=== PATIENT | male | born 1945 | race Caucasian/White ===

== ENCOUNTER → 2018-08-31 | Outpatient (CLI) | payer MEDICARE, OTHER, SELFPAY ==
--- NOTE | 2018-08-31 16:55 | CT_ITS ---
STUDY: CT MAXILLOFACIAL SINUSES REASON FOR EXAM: Male, 72 years old. Sinusitis, right-sided is worse. Chronic left-sided drainage. RADIATION DOSAGE (If Supplied By Facility): CTDIvol = ( 33.06 ) mGy, DLP = ( 759.47 ) mGycm TECHNIQUE: The patient was scanned in a multi detector CT scanner. High resolution axial imaging was performed without the administration of intravenous contrast material. Sagittal and coronal images were reconstructed. Individualized dose optimization techniques were used for this CT. COMPARISON: None. FINDINGS: FRONTAL SINUSES: Normal aeration, without mucosal inflammatory disease. ETHMOIDAL SINUSES: Right ethmoidectomy defect. Normal left ethmoid sinus. MAXILLARY SINUSES: Complete opacification of the right matter sinus with sclerotic normal thickening and contraction. 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 SPHENOIDAL SINUSES: Normal aeration, without mucosal inflammatory disease. Normal left ostiomeatal unit. 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 Partial right middle turbinectomy. Normal left middle turbinate. Postsurgical absence of the right inferior turbinate. Normal left inferior turbinate. Minimal right basal septal deviation. There is patency of the bilateral nasal airways. The visualized osseous structures are normal. The visualized bilateral orbital contents are normal. CT/Sinus/Facial Bone IMPRESSION: 1. Complete opacification of the right macros sinuses with sclerotic wall thickening and contraction from chronic sinusitis with probable granulation tissue. 2. 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 3. Right ethmoidectomy defect without mucosal thickening of the residual right ethmoid air cells. 4. Normal remaining paranasal sinuses. 5. Patent left ostiomeatal unit. 6. Minimal right nasal septal deviation. Electronically Signed: Quinton Rashid MD at 14:13 EDT , Service support ,
== END | disposition home or self-care (01) ==
PROVIDERS: Referring Provider Otolaryngology; Visit Provider Otolaryngology
DX: J32.9 Chronic sinusitis, unspecified (principal)
CPT/HCPCS: 70486

== ENCOUNTER → 2018-11-05 | Outpatient (CLI) | payer MEDICARE, OTHER, SELFPAY ==
[2018-11-05 14:29] LABS: PSA,Total - Annual Screen 0.61 ng/mL (0.00-4.00)
== END | disposition home or self-care (01) ==
LOC: PAVLAB 13:46
PROVIDERS: Referring Provider Urology; Visit Provider Urology
DX: Z12.5 Encounter for screening for malignant neoplasm of prostate (principal)
CPT/HCPCS: 36415; 84153; G0103

== ENCOUNTER 2021-05-28 12:16 | Outpatient (CLI) | payer MEDICARE, SELFPAY ==
[2021-05-28 12:40] LABS: EGFR FINGERSTICK > 60.0000 mL/min (>60)
--- NOTE | 2021-05-28 13:00 | MRI_ITS ---
EXAM: MR HEAD WITHOUT AND WITH INTRAVENOUS CONTRAST : 1945 CLINICAL INDICATION: DIPLOPIA x 2-4 weeks TECHNIQUE: Multiplanar and multisequence MR images of the brain were obtained without and with intravenous contrast. This report was created using [employer] [place] report generation technology. CONTRAST: IV 22ml Dotarem COMPARISON: None. FINDINGS: BRAIN AND EXTRA-AXIAL SPACES: Several small foci of increased T2 signal intensity within the cerebral white matter consistent with gliosis/chronic microvascular disease. No abnormal contrast enhancement. No intra- or extra-axial hemorrhage. No evidence of acute infarct. No intracranial mass or mass effect. There is preservation of the starkey/white matter interface. Posterior fossa structures are unremarkable. Ventricles are appropriate for age. No hydrocephalus. Basal cisterns are patent. SELLA: Unremarkable. Normal sella turcica, pituitary gland, infundibular stalk, optic chiasm and hypothalamus. AUDITORY SYSTEM: Unremarkable. The internal auditory canals are patent. BONES/JOINTS: Unremarkable. No discrete lytic or blastic abnormalities. SINUSES: Mucosal thickening noted within the paranasal sinuses. MASTOID AIR CELLS: Unremarkable as visualized. Clear. ORBITS: Unremarkable as visualized. Both globes, extraocular muscles, optic nerves and retrobulbar fat appear unremarkable. VASCULATURE: Unremarkable as visualized. Normal flow voids in the major intracranial circulation. MRI/Brain W/WO Contrast IMPRESSION: 1. No acute intracranial abnormality. 2. Mild senescent change. at 1422 Reported and signed by: Amador Rodriguez MD Electronically Signed: Amador Rodriguez MD at 14:20 EST ,
== END 2021-05-28 23:59 | disposition short-term general hospital (02) ==
PROVIDERS: PCP Family Medicine; Referring Provider Ophthalmology; Visit Provider Ophthalmology
DX: H53.2 Diplopia (principal)
CPT/HCPCS: 70553; A9575

== ENCOUNTER → 2022-04-13 | Outpatient (CLI) | payer MEDICARE, SELFPAY ==
--- NOTE | 2022-04-13 08:45 | EKG12_ITS ---
Test Reason : PRE-OP Blood Pressure : / mmHG Vent. Rate : 064 BPM Atrial Rate : 049 BPM P-R Int : 190 ms QRS Dur : 112 ms QT Int : 454 ms P-R-T Axes : 026 -24 034 degrees QTc Int : 468 ms Sinus bradycardia with occasional Premature ventricular complexes Otherwise normal ECG Confirmed by RADHA DIOR, BINDU ([id number]), news videotape editor MINERVA TERESA ([id number]) on 04/14/2022 8:32:38 AM Referred By: MARCELO Confirmed By:BINDU GARCIA MD
[2022-04-13 10:50] LABS: Hematocrit 44.1 % (40-54); Hemoglobin 15.1 g/dL (13.0-16.5); Mean Corp Hgb Conc 34.2 g/dL (32-36); Mean Corpuscular Hgb 30.1 pg (27.0-32.0); Mean Corpuscular Volume 87.8 fL (80-94); Platelet Count 230 K/mm3 (150-450); RBC Distribution Width CV 13.6 % (11.6-14.6); RBC Distribution Width SD 43.5 fl (35.1-43.9); Red Blood Count 5.02 M/mm3 (4.6-6.2); White Blood Count 9.4 K/mm3 (4.4-11.0)
[2022-04-13 11:33] LABS: Anion Gap 8 (5-15); BUN 44 mg/dL (7-18); Calcium,Total 9.2 mg/dL (8.5-10.1); Chloride 105 mmol/L (98-107); Creatinine, Serum 1.69 mg/dL (0.70-1.30); EST Glomerular Filtration Rate 42 mL/min (>60); Est Glom Filt Rate - Afr Amer 51 mL/min (>60); Glucose 90 mg/dL (74-106); Potassium 3.9 mmol/L (3.5-5.1); Sodium Level 138 mmol/L (136-145)
== END | disposition home or self-care (01) ==
LOC: PSN 08:26
PROVIDERS: PCP Family Medicine; Visit Provider Otolaryngology
DX: Z01.818 Encounter for other preprocedural examination (principal); R00.1 Bradycardia, unspecified; I49.3 Ventricular premature depolarization
CPT/HCPCS: 36415; 80048; 85027; 93005

== ENCOUNTER → 2022-04-19 | Outpatient (CLI) | payer MEDICARE, SELFPAY ==
--- NOTE | 2022-04-19 14:50 | ETH_PTH ---
PATIENT: BEV TOUSSAINT Jr. LOC: [facility] U#:[id number] AGE/SX: 76/M ROOM: RE04/19/[address]: Dr. Mark Isabel MD : 1945 BED: DIS: 04/19/2022 SPEC #: [id number] RECD: 04/20/22 14:55 STATUS: AMAURY TAVERAS #: [id number] KENIA: 04/19/22 14:[address]: Mark Isabel DEPT: SURGICAL PATHOLOGY RECD BY: Clayton Hernandez ENTERED: 04/21/22 10:03 SP TYPE: ETH TISS OTHR DR: Dr. Radu Sequeira MD Tissues: A - Ethmoid sinus, NOS B - Ethmoid sinus, NOS Procedures: Decalcification bone/plaque Surgery Specimen Level III HEADER OPERATION: Functional endoscopic sinus surgery PRE-OP DIAGNOSIS: Chronic pansinusitis TISSUE SUBMITTED: A ? Contents right sinus, B ? Contents left sinus MICROSCOPIC DIAGNOSIS A. Right sinus contents, curettings: Polypoid fragment of respiratory mucosa with chronic inflammation. B. Left sinus contents, curettings: Consistent with chronic sinusitis. Fragments of bone with no pathologic change. AM:ashish 04/26/2022 MICROSCOPIC DESCRIPTION Slides are reviewed. GROSS DESCRIPTION A - Received in fixative is one container labeled with the patient's name and designated right sinus contents. The specimen consists of a fragment of tidwell soft tissue measuring 0.6 x 0.2 x 0.1 cm. The entire specimen is submitted in one cassette. B - A - Received in fixative is one container labeled with the patient's name and designated left sinus contents. The specimen consists of multiple irregular fragments of tidwell soft tissue mixed with fragments of bone including turbinate that in aggregate measure 3 x 2.5 x 0.3 cm. The entire specimen is submitted in two cassettes after decalcification. / SJ:ashish 04/21/2022 TC:3 CPT: 95564 x2, [id number]
== END | disposition home or self-care (01) ==
LOC: LABSPEC 04-21 10:06
PROVIDERS: PCP Family Medicine; Referring Provider Otolaryngology; Visit Provider Otolaryngology
DX: J32.9 Chronic sinusitis, unspecified (principal)
CPT/HCPCS: 88304; 88305; 88311

== ENCOUNTER → 2023-07-04 | Outpatient (CLI) | payer MEDICARE, SELFPAY ==
--- NOTE | 2023-07-04 14:50 | RAD_ITS ---
INDICATION: inflammatory polyarthropathy EXAMINATION/TECHNIQUE: X-RAY - XR Pelvis 1 or 2 Views COMPARISON: None. FINDINGS: PELVIC BONES: No displaced fracture, destructive or sclerotic lesions. Note that overlapping bowel shadows may however obscure fine detail. Sacroiliac joints are unremarkable. No widening of the pubic symphysis. HIPS: The articular structures are unremarkable. No displaced fracture seen in this frontal view. SOFT TISSUES: No soft tissue swelling or gas. Diffuse vascular calcifications are present in the femoral vessels greater on the RIGHT than LEFT. RAD/Pelvis 1 or 2 Views IMPRESSION: No evidence of displaced pelvic or hip fracture. Electronically Signed: Julio Cabrera MD at 18:08 EDT ,
[2023-07-04 18:18] LABS: Erythrocyte Sedimentation Rate 75 mm/hr (0-20)
[2023-07-04 18:20] LABS: Absolute Lymphocyte Count 1.37 X10^3/uL (0.83-4.51); Absolute Neutrophil Count 5.9 X10^3/uL (2.0-7.7); Basophil# 0.08 X10^3/uL; Basophil% 0.9 % (0-1); Eosinophil# 0.27 X10^3/uL; Eosinophils% 3.1 % (0-5); Hematocrit 38.7 % (40-54); Hemoglobin 12.3 g/dL (13.0-16.5); Lymphocyte # 1.37 X10^3/ul (0.83-4.51); Lymphocyte % 15.6 % (19-41); Mean Corp Hgb Conc 31.8 g/dL (32-36); Mean Corpuscular Hgb 27.2 pg (27.0-32.0); Mean Corpuscular Volume 85.4 fL (80-94); Mean Platelet Vol. 11.9 fl (6.2-12.0); Monocyte# 0.99 X10^3/uL; Monocyte% 11.2 % (0-10); NRBC Flagged by Analyzer 0 % (0-5); Neutrophil # 5.89 X10^3/uL (2.7-7.7); Neutrophil % 66.8 % (47-70); Platelet Count 301 K/mm3 (150-450); RBC Distribution Width CV 13.4 % (11.6-14.6); RBC Distribution Width SD 41.5 fl (35.1-43.9); Red Blood Count 4.53 M/mm3 (4.6-6.2); White Blood Count 8.8 K/mm3 (4.4-11.0)
[2023-07-04 18:39] LABS: ALB/GLOB Ratio 0.7 RATIO (0.9-2.4); AST(SGOT) 15 U/L (15-37); Alanine Aminotransfer ALT/SGPT 18 U/L (16-61); Albumin, Serum 3.2 g/dL (3.2-5.0); Alkaline Phosphatase 58 U/L (45-117); Anion Gap 9 (5-15); BUN 50 mg/dL (7-18); BUN/Creat Ratio 23.6 RATIO (10-20); Calcium,Total 9.5 mg/dL (8.5-10.1); Chloride 105 mmol/L (98-107); Creatinine, Serum 2.12 mg/dL (0.70-1.30); EST Glomerular Filtration Rate 33 mL/min (>60); Est Glom Filt Rate - Afr Amer 39 mL/min (>60); Globulin 4.9 g/dL (2.2-4.2); Glucose 107 mg/dL (74-106); Potassium 4.7 mmol/L (3.5-5.1); Protein, Total 8.1 g/dL (6.4-8.2); Rheumatoid Factor < 10.0 IU/mL (<15); Sodium Level 135 mmol/L (136-145)
[2023-07-04 19:49] LABS: Hepatitis B Surface Antibody Reactive; Hepatitis B Surface Antigen Non-Reactive (Nonreactive); Hepatitis C Antibody Non-Reactive (Nonreactive)
--- OUTSIDE RECORDS SUMMARY | 2023-07-05 02:33 | XMS RPT_ITS | CCD ---
Author Name Unknown Address [address] [place] [address] Organization [facility] Care Team Providers Care Recreational Therapist Name Role Phone Julio Burgos Primary Care Provider CASSIUS SEGUNDO Attending Unavailable SHELDON LOPEZ Attending Unavailable CASSIUS SEGUNDO Admitting Unavailable CASSIUS SEGUNDO Attending Unavailable KATIE, RODO Referring Unavailable JULIO BURGOS Primary Care Unavailable SYSTEM, PROVIDER NOT IN Attending Unavaila ble SYSTEM, PROVIDER NOT IN Referring Unavaila ble JULIO BURGOS Primary Care Unavailable SYSTEM, PROVIDER NOT IN Attending Unavaila ble SYSTEM, PROVIDER NOT IN Referring Unavaila ble JULIO BURGOS Primary Care Unavailable SYSTEM, PROVIDER NOT IN Attending Unavaila ble SYSTEM, PROVIDER NOT IN Referring Unavaila ble JULIO BURGOS Primary Care Unavailable NO, PHYSICIAN Primary Care Unavailable SRINIVASA ROSADO Admitting Unavailab le SRINIVASA ROSADO Referring Unavailab le System, Provider Not In Unavailable Unavaila ble No, Physician Primary Care Provider Unavailabl e System, Provider Not In Unavailable Unavaila ble No, Physician Primary Care Provider Unavailabl e SRINIVASA ROSADO Admitting Unavailab le NO, PHYSICIAN Primary Care Unavailable SRINIVASA ROSADO Attending Unavailab le NO, PHYSICIAN Primary Care Unavailable SRINIVASA ROSADO Referring Unavailab le SRINIVASA ROSADO Attending Unavailab Miriam Rivera MD Primary Care Provider Miriam Aguayo MD Primary Care Provider Miriam Aguayo MD Primary Care Provider MIRIAM AGUAYO Referring Unavailable MIRIAM AGUAYO Primary Care Unavailable MIRIAM AGUAYO Attending Unavailable MIRIAM AGUAYO Primary Care Unavailable MIRIAM AGUAYO Referring Unavailable MIRIAM AGUAYO Primary Care Unavailable MIRIAM AGUAYO Primary Care Unavailable MIRIAM AGUAYO Attending Unavailable MIRIAM AGUAYO Primary Care Unavailable MIRIAM AGUAYO Referring Unavailable MIRIAM AGUAYO Primary Care Unavailable MIRIAM AGUAYO Attending Unavailable MIRIAM AGUAYO Primary Care Unavailable Allergies Allergy Classification Reported Allergen(s) Allergy Type Date of Onset Reaction(s) Facility NSAIDs (4 sources) NSAIDs; Translations: [NSAIDS (NON-STEROIDAL ANTI-INFLAMMATORY DRUG)] Drug Allergy 09-18-2020 [facility] Unclassified (4 sources) Ct: Iodinated Contrast- Oral And Iv Dye; Translations: [CT: IODINATED CONTRAST- ORAL AND IV DYE] Propensity to adverse reactions to drug 09-18-2020 [facility] Medications Current Medications Medication Drug Class(es) Dates Sig (Normalized) Sig (Original) DOCOSAHEXANOIC ACID/EPA (FISH OIL ORAL) (7 sources) DOCOSAHEXANOIC A COTY/EPA (FISH OIL ORAL) Indications: SUPP Take by mouth 2 (two) times a day Reasons: SUPP. 0 Active Completed/Discontinued Medications Medication Drug Class(es) Dates Sig (Normalized) Sig (Original) amLODIPine 5 mg oral tablet (17 sources) Dihydropyridine Calcium Channel Steven Start: 04-18-2023 take 1 tablet by mouth once daily amLODIPine (NORVASC) 5 mg tablet Indications: Essential hypertension Take 1 tablet by mouth once daily. 90 tablet 3 04/18/2023 Active Problems Active Problems Problem Classification Problem Date Documented Date Episodic/Chronic Cardiac dysrhythmias (9 sources) Cardiac arrhythmia; Translations: [Cardiac arrhythmia, unspecified] Onset: 02-25-2020 02-25-2020 Chronic Chronic kidney disease (12 sources) Chronic kidney disease stage 3A ; Translations: [Stage 3a chronic kidney disease] Onset: 08-17-2020 08-17-2020 Chronic Chronic kidney disease (1 source) Chronic kidney disease; Translations: [Stage 3a chronic kidney disease (HCC)] Onset: 08-17-2020 Coronary atherosclerosis and other heart disease (1 source) Calcification of coronary artery; Translations: [Coronary artery calcification] Chronic Diseases of white blood cells (7 sources) Leukocytosis; Translations: [Elevated white blood cell count, unspecified] Onset: 09-30-2014 09-30-2014 Chronic Disorders of lipid metabolism (20 sources) Hyperlipidemia; Translations: [Hyperlipidemia, unspecified] Onset: 11-18-2014 11-20-2014 Chronic Diverticulosis and diverticulitis (9 sources) Diverticulitis; Translations: [Diverticulitis of intestine, part unspecified, without perforation or abscess without bleeding] Onset: 02-25-2020 02-25-2020 Chronic Esophageal disorders (9 sources) Gastroesophageal reflux disease; Translations: [Gastro-esophageal reflux disease without esophagitis] Onset: 02-25-2020 02-25-2020 Chronic Essential hypertension (20 sources) Hypertensive disorder; Translations: [Essential (primary) hypertension] Onset: 09-21-2014 11-20-2014 Chronic Genitourinary symptoms and ill-defined conditions (2 sources) Urgent desire to urinate; Translations: [Urgency of urination] Episodic Hyperplasia of prostate (6 sources) Benign prostatic hyperplasia; Translations: [Benign prostatic hyperplasia with lower urinary tract symptoms] Onset: 11-18-2022 Chronic Immunizations and screening for infectious disease (1 source) Vaccination needed; Translations: [Encounter for immunization] Episodic Miscellaneous mental health disorders (15 sources) Primary insomnia; Translations: [Primary insomnia] Onset: 08-17-2020 08-17-2020 Chronic Nutritional deficiencies (9 sources) Vitamin D deficiency; Translations: [Vitamin D deficiency, unspecified] Onset: 02-25-2020 02-25-2020 Chronic Osteoarthritis (9 sources) Arthritis; Translations: [Unspecified osteoarthritis, unspecified site] Onset: 02-25-2020 02-25-2020 Chronic Other connective tissue disease (1 source) Other synovitis and tenosynovitis, right hand; Translations: [Stenosing tenosynovitis of finger of right hand] Onset: 06-08-2023 Episodic Other connective tissue disease (1 source) Other synovitis and tenosynovitis, left hand; Translations: [Horseshoe tenosynovitis of left hand] Onset: 06-08-2023 Episodic Other ear and sense organ disorders (9 sources) Hearing loss of right ear; Translations: [Unspecified hearing loss, right ear] Onset: 02-25-2020 02-25-2020 Chronic Other liver diseases (4 sources) Elevated total bilirubin; Translations: [Total bilirubin, elevated] Onset: 09-25-2014 09-29-2014 Chronic Other lower respiratory disease (3 sources) Dyspnea; Translations: [Shortness of breath] Episodic Other male genital disorders (6 sources) Male erectile dysfunction, unspecified; Translations: [Impotence of organic origin] Onset: 11-18-2022 Chronic Other non-traumatic joint disorders (1 source) Joint pain in right hand; Translations: [Pain in joints of right hand] 05-30-2023 Episodic Other non-traumatic joint disorders (1 source) Joint pain; Translations: [Pain in unspecified joint] 05-30-2023 Episodic Residual codes; unclassified (9 sources) Obstructive sleep apnea syndrome; Translations: [Obstructive sleep apnea (adult) (pediatric)] Onset: 02-25-2020 02-25-2020 Chronic Rheumatoid arthritis and related disease (1 source) Inflammatory polyarthropathy; Translations: [Inflammatory polyarthropathy (HCC)] Onset: 06-08-2023 Chronic Unclassified (4 sources) Patient encounter status; Translations: [Preventative health care] Onset: 11-18-2014 11-18-2014 Past or Other Problems Problem Classification Problem Date Documented Da te Episodic/Chronic Abdominal hernia (20 sources) Hernia of anterior abdominal wall; Translations: [Hernia of abdominal wall] Onset: 09-21-2014 11-20-2014 Episodic Deficiency and other anemia (7 sources) Anemia; Translations: [Anemia, unspecified] Onset: 09-30-2014 09-30-2014 Episodic Fluid and electrolyte disorders (7 sources) Hyponatremia; Translations: [Hypo-osmolality and hyponatremia] Onset: 09-30-2014 09-30-2014 Episodic Other ear and sense organ disorders (9 sources) Tinnitus; Translations: [Tinnitus, unspecified ear] Onset: 02-25-2020 02-25-2020 Episodic Other gastrointestinal disorders (7 sources) Ascites; Translations: [Other ascites] Onset: 09-30-2014 09-30-2014 Episodic Other liver diseases (3 sources) Elevated total bilirubin; Translations: [Unspecified jaundice] Onset: 09-25-2014 09-29-2014 Episodic Other lower respiratory disease (1 source) Other disorders of lung; Translations: [Herniation of left lung] Episodic Other lower respiratory disease (12 sources) Disorder of lung; Translations: [Other disorders of lung] Onset: 02-25-2020 02-25-2020 Episodic Other screening for suspected conditions (not mental disorders or infectious disease) (7 sources) CT of abdomen abnormal; Translations: [Abnormal findings on diagnostic imaging of other abdominal regions, including retroperitoneum] Onset: 09-30-2014 09-30-2014 Episodic Other skin disorders (9 sources) Fistula; Translations: [Other specified disorders of the skin and subcutaneous tissue] Onset: 02-25-2020 02-25-2020 Episodic Peritonitis and intestinal abscess (7 sources) Abdominal abscess; Translations: [Peritoneal abscess] Onset: 09-21-2014 09-29-2014 Episodic Residual codes; unclassified (7 sources) Swelling - edema - symptom; Translations: [Edema, unspecified] Onset: 09-29-2014 09-29-2014 Episodic Residual codes; unclassified (4 sources) History of cholecystectomy; Translations: [S/P cholecystectomy] Onset: 11-20-2014 11-20-2014 Episodic Residual codes; unclassified (4 sources) Preoperative state; Translations: [Preoperative clearance] Onset: 11-18-2014 Resolved: 11-20-2014 11-20-2014 Episodic Septicemia (except in labor) (7 sources) Sepsis; Translations: [Sepsis, unspecified organism] Onset: 09-21-2014 09-29-2014 Episodic Results Test Name Value Interpretation Reference Range Facil ity Vital Signs Date Time Vital Sign Value Performing Clinician Sulma wei 05-30-2023 10:51-0500 Body weight 95.25 kg Miriam Aguayo MD Work Phone: [facility] 05-30-2023 10:51-0500 Diastolic blood pressure 76 mm[Hg] Miriam Aguayo MD Work Phone: [facility] 05-30-2023 10:51-0500 Heart rate 60 /min Miriam Aguayo MD Work Phone: [facility] 05-30-2023 10:51-0500 Respiratory rate 18 /min Miriam Aguayo MD Work Phone: [facility] 05-30-2023 10:51-0500 Systolic blood pressure 118 mm[Hg] Miriam Aguayo MD Work Phone: [facility] 11-25-2022 09:06-0400 Body weight 93.08 kg Miriam Aguayo MD Work Phone: [facility] 11-25-2022 09:06-0400 Diastolic blood pressure 70 mm[Hg] Miriam Aguayo MD Work Phone: [facility] 11-25-2022 09:06-0400 Heart rate 68 /min Miriam Aguayo MD Work Phone: [facility] 11-25-2022 09:06-0400 Respiratory rate 16 /min Miriam Aguayo MD Work Phone: [facility] 11-25-2022 09:06-0400 Systolic blood pressure 122 mm[Hg] Miriam Aguayo MD Work Phone: [facility] 08-25-2022 11:03-0400 Body weight 93.89 kg Miriam Aguayo MD Work Phone: [facility] 08-25-2022 11:03-0400 Diastolic blood pressure 64 mm[Hg] Miriam Aguayo MD Work Phone: [facility] 08-25-2022 11:03-0400 Heart rate 56 /min Miriam Aguayo MD Work Phone: [facility] 08-25-2022 11:03-0400 Respiratory rate 16 /min Miriam Aguayo MD Work Phone: [facility] 08-25-2022 11:03-0400 Systolic blood pressure 118 mm[Hg] Miriam Aguayo MD Work Phone: [facility] 02-10-2022 09:45-0400 Body weight 101.88 kg Miriam Aguayo MD Work Phone: [facility] 02-10-2022 09:45-0400 Diastolic blood pressure 58 mm[Hg] Miriam Aguayo MD Work Phone: [facility] 02-10-2022 09:45-0400 Heart rate 56 /min Miriam Aguayo MD Work Phone: [facility] 02-10-2022 09:45-0400 Respiratory rate 16 /min Miriam Aguayo MD Work Phone: [facility] 02-10-2022 09:45-0400 Systolic blood pressure 94 mm[Hg] Miriam Aguayo MD Work Phone: [facility] 08-10-2021 09:22-0400 Body weight 114.76 kg Miriam Aguayo MD Work Phone: [facility] 08-10-2021 09:22-0400 Diastolic blood pressure 60 mm[Hg] Miriam Aguayo MD Work Phone: [facility] 08-10-2021 09:22-0400 Heart rate 58 /min Miriam Aguayo MD Work Phone: [facility] 08-10-2021 09:22-0400 Respiratory rate 16 /min Miriam Aguayo MD Work Phone: [facility] 08-10-2021 09:22-0400 Systolic blood pressure 122 mm[Hg] Miriam Aguayo MD Work Phone: [facility] 09-23-2020 13:00-0400 Body temperature 97.7 [degF] Srinivasa Rosado MD Work Phone: [facility] 09-23-2020 13:00-0400 Diastolic blood pressure 73 mm[Hg] Srinivasa Rosado MD Work Phone: [facility] 09-23-2020 13:00-0400 Heart rate 65 /min Srinivasa Rosado MD Work Phone: [facility] 09-23-2020 13:00-0400 Respiratory rate 17 /min Srinivasa Rosado MD Work Phone: [facility] 09-23-2020 13:00-0400 SaO2% (BldA) [Mass fraction] 91 % Srinivasa Rosado MD Work Phone: [facility] 09-23-2020 13:00-0400 Systolic blood pressure 138 mm[Hg] Srinivasa Rosado MD Work Phone: [facility] 09-23-2020 08:15-0400 Body height 182.9 cm Srinivasa Rosado MD Work Phone: [facility] 09-23-2020 08:15-0400 Body mass index (BMI) [Ratio] 33.49 kg/m2 Srinivasa Rosado MD Work Phone: [facility] 09-23-2020 08:15-0400 Body weight 112 kg Srinivasa Rosado MD Work Phone: [facility] 01-06-2020 13:30-0400 BP Diastolic 74 mm[Hg] Cassius Segundo [facility] 01-06-2020 13:30-0400 BP Systolic 122 mm[Hg] Cassius Segundo [facility] 01-06-2020 13:30-0400 Pulse (Heart Rate) 64 /min Cassius Segundo [facility] Encounters Encounter Date Encounter Type Care Provider Facility Start: 06-08-2023 End: 06-09-2023 ambulatory MIRIAM AGUAYO Facility:[facility] Start: 05-30-2023 End: 05-30-2023 ambulatory MIRIAM AGUAYO Facility:[facility] Start: 05-30-2023 End: 05-30-2023 Patient encounter procedure Miriam Aguayo MD Work Phone: [facility] Procedures Date Procedure Procedure Detail Performing Clinician Start: 05-29-2023 Lipid 1996 panel - Serum or Plasma Miriam Aguayo MD Work Phone: Start: 02-10-2022 INFLUENZA SEASONAL QUADRIVALENT HIGH DOSE AGE 65+ Miriam Aguayo MD Work Phone: Start: 08-02-2021 Colonoscopy Tricia Boateng MD Work Phone: Start: 09-23-2020 SCAN OTHER ORDERS Provider Not In Syst em Start: 09-23-2020 AIRWAY ETT Noemi Somers Work Phone: Start: 09-23-2020 End: 09-23-2020 ARTHROPLASTY SHOULDER REVERSE Srinivasa Rosado MD Work Phone: Start: 09-23-2020 Injection aa&/strd brachial plexus Raheem Franco MD Work Phone: Start: 09-23-2020 Us guidance needle placement img s&i Raheem Franco MD Work Phone: Start: 09-23-2020 Blood typing serologic abo Srinivasa Rosado MD Work Phone: Start: 08-17-2020 Adult depression screening assessment Tricia Boateng MD Work Phone: Start: 01-06-2020 Computerized tomography, limited studies External Transcribed Start: 01-06-2020 Radiographic imaging procedure External Transcribed Start: 11-20-2014 History of cholecystectomy S/P cholecystectomy Jonah Jones Work Phone: Start: 11-18-2014 Colonoscopy Cassius Segundo Plan of Treatment Date Care Activity Detail Author Start: 02-11-2032 Urine microalbumin profile [facility] Start: 05-29-2028 Lipid panel Lipid Screening [facility] Start: 08-02-2027 LIPID SCREEN LIPID SCREEN [facility] Start: 02-03-2027 LIPID SCREEN LIPID SCREEN [facility] Start: 08-04-2026 LIPID SCREEN LIPID SCREEN [facility] Start: 05-29-2026 Diabetes Screening Diabetes Screenin g [facility] Start: 09-02-2025 LIPID SCREEN LIPID SCREEN [facility] Start: 08-01-2025 DIABETES SCREEN DIABETES SCREEN [facility] Start: 02-03-2025 DIABETES SCREEN DIABETES SCREEN [facility] Start: 11-18-2024 Screening for malign ant neoplasm of colon [facility] Start: 08-04-2024 DIABETES SCREEN DIABETES SCREEN [facility] Start: 08-02-2024 Colonoscopy COLONOSCOPY [facility] Start: 08-02-2024 COLORECTAL CANCER SCREENING COLORECTAL CANCER SCREENING [facility] Start: 08-02-2024 Screening for malign ant neoplasm of colon [facility] Start: 05-30-2024 Annual PCP Team Meat Team Lead roberto Disease Visit Annual PCP Team Chronic Disease Visit [facility] Start: 05-30-2024 BP Controlled (<130/80) BP Controlle d (<130/80) [facility] Start: 05-30-2024 Covid-19 Vaccine () Covid-19 Vaccine () [facility] Immunizations Immunization Date Immunization Notes Care Provider Mahesh admas 03-01-2023 influenza (aIIV4) vaccine, age 65+ yr, quadrivalent, PF (FLUAD QUAD) Miriam Aguayo MD Work Phone: [facility] 02-10-2022 influenza, high-dose , quadrivalent vaccine (FLUZONE HIGH DOSE QUADRIVALENT) Miriam Aguayo MD Work Phone: [facility] 02-10-2022 tetanus toxoid, redu tiffanie diphtheria toxoid, and acellular pertussis vaccine, adsorbed Miriam Aguayo MD Work Phone: [facility] 07-23-2021 COVID-19 original vaccine, age 12+ yr, monovalent (PFIZER-BIONTECH - BUITRAGO TOP) Miriam Aguayo MD Work Phone: [facility] 01-23-2021 COVID-19 original vaccine, age 12+ yr, monovalent (PFIZER-BIONTECH - PURPLE TOP) Miriam Aguayo MD Work Phone: [facility] 01-23-2021 influenza, high-dose , quadrivalent vaccine (FLUZONE HIGH DOSE QUADRIVALENT) Tricia Boateng MD Work Phone: [facility] 06-10-2020 Pfizer SARS-CoV-2 Vaccination Jonah Caballero MD Work Phone: [facility] 05-20-2020 Pfizer SARS-CoV-2 Vaccination Jonah Caballero MD Work Phone: [facility] 12-17-2019 influenza, high dose seasonal, preservative-free Tricia Boateng MD Work Phone: [facility] 12-17-2019 pneumococcal polysaccharide vaccine, 23 valent Tricia Boateng MD Work Phone: [facility] 02-10-2018 pneumococcal conjuga te vaccine, 13 valent Miriam Aguayo MD Work Phone: [facility] 02-10-2018 zoster vaccine recombinant Miriam Aguayo MD Work Phone: [facility] 01-15-2017 influenza, high dose seasonal, preservative-free Tricia Boateng MD Work Phone: [facility] 03-13-2016 influenza, high dose seasonal, preservative-free Tricia Boateng MD Work Phone: [facility] 01-16-2015 influenza, injectabl e, quadrivalent, preservative free Cassius Segundo [facility] 01-14-2012 tetanus toxoid, redu tiffanie diphtheria toxoid, and acellular pertussis vaccine, adsorbed Tricia Boateng MD Work Phone: [facility] Payers Date Payer Category Payer Medicare [id number] 2019 Medicare [id number] 2019 Medicare [employer] MEDICARE [employer] GOLD PLUS [id number] 2019-Present [id number] [place] [id number] O [id number] 2014 Unknown [id number] 2014 Unknown 2012 Medicare [id number] 1945 Unknown [id number] 1945 Unknown [id number] 1945 Unknown [id number] 1945 Unknown [id number] 1945 Unknown [id number] 1947 Unknown [id number] 1947 Unknown [id number] 1945 Unknown [id number] 1945 Unknown [id number] Social History Date Type Detail Facility Start: 01-06-2020 End: 02-10-2022 Tobacco smoking status NHIS Never smoker [facility] in Start: 01-06-2020 End: 02-10-2022 Tobacco use and exposure Never used [facility] Start: 01-06-2020 End: 09-23-2020 Alcohol intake Current drinker of alcohol (finding) [facility] Start: 01-06-2020 End: 08-09-2021 History SDOH Alcohol Frequency 2 [facility] Start: 01-06-2020 End: 08-09-2021 History SDOH Alcohol Std Drinks 1 [facility] Start: 09-22-2014 Alcohol Comment 1 a month [facility] Start: 1945 Sex Assigned At Not on file [facility] Start: 07-31-2021 End: 02-10-2022 Exposure to SARS-CoV-2 (event) Not sure [facility] Start: 02-16-2021 End: 05-30-2023 Alcohol intake Ex-drinker (finding) [facility] Start: 05-16-2020 History SDOH Alcohol Frequency 3 [facility] Start: 05-16-2020 End: 08-09-2021 History SDOH Social Connections Phone 5 [facility] Start: 05-16-2020 End: 08-09-2021 History SDOH Social Connections Living 4 [facility] Start: 05-16-2020 History SDOH Physica l Activity DPW 0 [facility] Start: 05-15-2020 Education 16 [facility] Start: 1945 Sex Assigned At Male C [facility] Start: 08-09-2021 History SDOH Physica l Activity MPS 12 [facility] Start: 08-09-2021 End: 08-25-2022 [facility] Start: 08-09-2021 End: 08-25-2022 Social connection and isolation panel [facility] Do you belong to any clubs or organizations such as jain groups, unions, fraternal or athletic groups, or school groups? Yes [facility] Are you now , , , , never or living with a partner? [facility] How hard is it for y ou to pay for the very basics like food, housing, medical care, and heating Not hard at all [facility] Do you feel stress - tense, restless, nervous, or anxious, or unable to sleep at night because your mind is troubled all the time - these days [OSQ] Very much [facility] (I/We) worried wheth er (my/our) food would run out before (I/we) got money to buy more. Never true [facility] In the past 12 month s, was there a time when you were not able to pay the mortgage or rent on time? No [facility] Start: 03-31-2020 Gender identity Identifies as male gender (finding) [facility] Medical Equipment Procedure Code Equipment Code Equipment Origin al Text Equipment Identifier Dates Device 14ga Punc ture Closure - [id number] Start: 11-19-2014 Mesh 5.4 X 7in L g Oval [address] - [id number] Start: 01-15-2015 Stem 74mm 3b 132.5deg Hum Std Ptc Ascend Flex - [id number] 2002, [id number] FDA Start: 09-23-2020 Tray +0mm Hum Hi gh Reversed Ascend Flex - [id number] [id number] 0, [id number] FDA Start: 09-23-2020 Insert +6 X 39mm 12.5deg Hum Flex - [id number] [id number] 7, [id number] FDA Start: 09-23-2020 Baseplate 25mm S td Perform Reversed Aequalis - [id number] [id number] 7, [id number] FDA Start: 09-23-2020 Sphere 39mm Canelo oid Std Rvrs Aequalis Performa - [id number], [id number] FDA Start: 09-23-2020 Screw 6.5 X 45mm Central Thrd Perform Reversed Aequalis - [id number] Start: 09-23-2020 Screw 5 X 38mm Peripheral Thrd Perform Reversed Aequalis - [id number] Start: 09-23-2020 Screw 5 X 26mm Peripheral Thrd Perform Reversed Aequalis - [id number] Start: 09-23-2020 Screw 5 X 18mm Peripheral Thrd Perform Reversed Aequalis - [id number] Start: 09-23-2020 Screw 5 X 22mm Peripheral Thrd Perform Reversed Aequalis - [id number] Start: 09-23-2020 Clinical Notes 09-22-2020 to 05-30-2023 Miriam Aguayo MD - 05/30/2023 10:40 AM ESTTelephone Encounter - Miriam Aguayo MD - 11/25/2022 4:07 PM EDTTelephone Encounter - Veronica William Ma - 11/25/2022 3:03 PM EDT Note Date & Type Note Facility 05-30-2023 Note HNO ID: [id number] Author: MIRIAM AGUAYO MD Service: ? Author Type: Physician Type: Progress Notes Filed: 05/30/2023 14:38 Note Text: Chief Complaint Patient presents with: F/U 6 Month HPI Bev Norris Jr. is a 77 year old male who presents here today for 6 month follow up. Pt here today for a 6 month follow up. Not skiing as much due to the cost. More interested in traveling with his girlfriend. Has a planned trip to go to [place] in the next few months. No bowel, Gi, or urinary issues. Has chronic dribbling and urinary urgency. Gets up once a night to urinate. Uses pads. He does not follow with Uro/Nephro. ED: Uses Cialis 20 mg prn. States this is really not affective. HTN: Checks BP at home. Taking Lopressor 100 mg 1 pill BID, Norvasc 5 mg daily, Lisionpril-HCTZ 20-25 mg daily. No chest pains or dizziness. Notes some issues of PVC's but not really bothersome. Has reported issues with sob in the past due to lung herniation. This has improved since losing weight. Has previously seen Cardiothoracic Dr. Segundo in [place], no recent visits. Lipid: Tries to control with lifestyle, no meds. Not able to exercise due to joint pain issues. Insomnia: taking Trazodone 100 mg daily prn, Melatonin 5 mg at bedtime and Benadryl 25 mg at bedtime. Completed depression questionnaire scored 3. Depression screening tool completed and reviewed. Based on score and interview, patient is has mild situational depression. Screening tool discussed with patient, and I recommended no further intervention at this time. Notes his symptoms are related to his chronic pain issues in his joints. Having increased pain in his feet that shoot up his legs making it hard to walk and ambulate. Pain at times are sharp and electrical type pain. Using CBD cream which helps some. Also notes increased pain in his right hand and wrist. 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 Not able to fully close his hand. Drops things frequently. Has had previous carpal tunnel surgery. They noted his hands are tight . This morning when he woke up his elbow was stiff and hurting and could barely straighten in. Wasn't able to open a jar and had to use his left hand. His joint pain just make things very difficult. Uses Aleve couple times per day for the pain. Was told he was using too much of this at one point and it was affecting his kidneys. HM - Does have Adv Dir/Living Will. Declines Covid vaccine. Needs to get 2nd Shingrix vaccine through Pharmacy. Will obtain RSV through Pharmacy. Past medical history, appointments, medications, allergies reviewed. Previous Medical History PAST MEDICAL HISTORY Diagnosis Date Carpal tunnel syndrome 08/06/2012 left wrist Presence of prosthesis right knee 11/24/06 and left knee 09/11/13 Previous Surgical History PAST SURGICAL HISTORY Procedure Laterality Date COLON SURGERY HX Left 03/13/2014 Left hemioclectomy for diverticulitis COLONOSCOPY 2003, 2010, and 11/18/2014 COLONOSCOPY N/A 08/02/2021 HERNIA REPAIR HX 01/15/2015 Dr. Yunior Yañez HERNIA REPAIR HX 10/04/2004 ventral umbilical IANDD ABSC COMPL OR MULTI 04/25/2014 LUQ abcess with wound vac IR US GUIDE VASCULAR ACCESS Left 09/23/2014 VR CR IR US Guided LUQ abdominal mass-Dr. Gael Garcia KNEE SURGERY HX Left 06/04/2002 ACLm repair KNEE SURGERY HX Left 11/11/1997 LAPAROSCOPIC CHOLECYSTECTOMY 11/19/2014 Dr. Yunior Yañez PAST SURGICAL HISTORY OF 04/25/2014 explantation of VHR mesh SHOULDER SURGERY HX Right 1970 biopsy SINUS SURGERY HX 11/05/2013 TOE SURGERY HX Right 09/15/1989 little toe TYMPANOPLASTY W/O MASTOIDECT W/O OSSICLE RECNSTJ Right 05/06/1985 VASECTOMY UNI/BI SPX W/POSTOP SEMEN EXAMS 1976 Family History FAMILY HISTORY Problem Relation Age of Onset Cancer Mother Endometrial Lung Cancer Mother Smoker Heart Failure Father Diabetes Father Kidney Disease Father Patient Allergies ALLERGIES No Known Allergies Current Medications Current Outpatient Medications on File Prior to Visit Medication Sig metoprolol tartrate, short acting, (LOPRESSOR) 100 mg tablet Take 1 tablet by mouth two times a day. lisinopril-hydroCHLOROthiazide (ZESTORETIC) 20-25 mg per tablet Take 1 tablet by mouth once daily. amLODIPine (NORVASC) 5 mg tablet Take 1 tablet by mouth once daily. traZODone (DESYREL) 100 mg tablet Take 1 tablet by mouth at bedtime as needed. Tadalafil (CIALIS) 20 mg tab(s) Take 1 tablet by mouth as needed. Take 30-60 minutes prior to sexual activity valACYclovir (VALTREX) 1 gram Take 1 tablet by mouth once daily. Melatonin 5 mg cap Take 1 capsule by mouth at bedtime as needed for for insomnia. aspirin, enteric coated (ASPIRIN, ENTERIC COATED) 81 mg EC tablet Take 1 tablet by mouth once daily. Take 2 tabs by mouth once daily melatonin 10 mg cap Take 10 mg by mouth at bedtime as needed. Cholecalciferol, Vitamin D3, 50 mcg (2,000 unit) cap Take 1 (more content not included)... [facility] 05-30-2023 History of Present illness Narrative Chief Complaint Patient presents with: F/U 6 Month HPI Bev R Stiers Jr. is a 77 year old male who presents here today for 6 month follow up. Pt here today for a 6 month follow up. Not skiing as much due to the cost. More interested in traveling with his girlfriend. Has a planned trip to go to [place] in the next few months. No bowel, Gi, or urinary issues. Has chronic dribbling and urinary urgency. Gets up once a night to urinate. Uses pads. He does not follow with Uro/Nephro. ED: Uses Cialis 20 mg prn. States this is really not affective. HTN: Checks BP at home. Taking Lopressor 100 mg 1 pill BID, Norvasc 5 mg daily, Lisionpril-HCTZ 20-25 mg daily. No chest pains or dizziness. Notes some issues of PVC's but not really bothersome. Has reported issues with sob in the past due to lung herniation. This has improved since losing weight. Has previously seen Cardiothoracic Dr. Segundo in [place], no recent visits. Lipid: Tries to control with lifestyle, no meds. Not able to exercise due to joint pain issues. Insomnia: taking Trazodone 100 mg daily prn, Melatonin 5 mg at bedtime and Benadryl 25 mg at bedtime. Completed depression questionnaire scored 3. Depression screening tool completed and reviewed. Based on score and interview, patient is has mild situational depression. Screening tool discussed with patient, and I recommended no further intervention at this time. Notes his symptoms are related to his chronic pain issues in his joints. Having increased pain in his feet that shoot up his legs making it hard to walk and ambulate. Pain at times are sharp and electrical type pain. Using CBD cream which helps some. Also notes increased pain in his right hand and wrist. 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 Not able to fully close his hand. Drops things frequently. Has had previous carpal tunnel surgery. They noted his hands are tight . This morning when he woke up his elbow was stiff and hurting and could barely straighten in. Wasn't able to open a jar and had to use his left hand. His joint pain just make things very difficult. Uses Aleve couple times per day for the pain. Was told he was using too much of this at one point and it was affecting his kidneys. HM - Does have Adv Dir/Living Will. Declines Covid vaccine. Needs to get 2nd Shingrix vaccine through Pharmacy. Will obtain RSV through Pharmacy. Past medical history, appointments, medications, allergies reviewed. Previous Medical History PAST MEDICAL HISTORY Diagnosis Date Carpal tunnel syndrome 08/06/2012 left wrist Presence of prosthesis right knee 11/24/06 and left knee 09/11/13 Previous Surgical History PAST SURGICAL HISTORY Procedure Laterality Date COLON SURGERY HX Left 03/13/2014 Left hemioclectomy for diverticulitis COLONOSCOPY 2003, 2010, and 11/18/2014 COLONOSCOPY N/A 08/02/2021 HERNIA REPAIR HX 01/15/2015 Dr. Yunior Yañez HERNIA REPAIR HX 10/04/2004 ventral umbilical I&D ABSC COMPL OR MULTI 04/25/2014 LUQ abcess with wound vac IR US GUIDE VASCULAR ACCESS Left 09/23/2014 VR CR IR US Guided LUQ abdominal mass-Dr. Gael Garcia KNEE SURGERY HX Left 06/04/2002 ACLm repair KNEE SURGERY HX Left 11/11/1997 LAPAROSCOPIC CHOLECYSTECTOMY 11/19/2014 Dr. Yunior Yañez PAST SURGICAL HISTORY OF 04/25/2014 explantation of VHR mesh SHOULDER SURGERY HX Right 1970 biopsy SINUS SURGERY HX 11/05/2013 TOE SURGERY HX Right 09/15/1989 little toe TYMPANOPLASTY W/O MASTOIDECT W/O OSSICLE RECNSTJ Right 05/06/1985 VASECTOMY UNI/BI SPX W/POSTOP SEMEN EXAMS 1977 Family History FAMILY HISTORY Problem Relation Age of Onset Cancer Mother Endometrial Lung Cancer Mother Smoker Heart Failure Father Diabetes Father Kidney Disease Father Patient Allergies ALLERGIES No Known Allergies Current Medications Current Outpatient Medications on File Prior to Visit Medication Sig metoprolol tartrate, short acting, (LOPRESSOR) 100 mg tablet Take 1 tablet by mouth two times a day. lisinopril-hydroCHLOROthiazide (ZESTORETIC) 20-25 mg per tablet Take 1 tablet by mouth once daily. amLODIPine (NORVASC) 5 mg tablet Take 1 tablet by mouth once daily. traZODone (DESYREL) 100 mg tablet Take 1 tablet by mouth at bedtime as needed. Tadalafil (CIALIS) 20 mg tab(s) Take 1 tablet by mouth as needed. Take 30-60 minutes prior to sexual activity valACYclovir (VALTREX) 1 gram Take 1 tablet by mouth once daily. Melatonin 5 mg cap Take 1 capsule by mouth at bedtime as needed for for insomnia. aspirin, enteric coated (ASPIRIN, ENTERIC COATED) 81 mg EC tablet Take 1 tablet by mouth once daily. Take 2 tabs by mouth once daily melatonin 10 mg cap Take 10 mg by mouth at bedtime as needed. Cholecalciferol, Vitamin D3, 50 mcg (2,000 unit) cap Take 1 capsule by mouth once daily. multivit-min/FA/lycopen/lutein (CENTRUM SILVER MEN ORAL) 1 tablet once daily. oxsfyuxv-aednhmqibsw-nlhx cb25 116-100 mg cap Take 1 tablet by mouth once daily. Yozjr-9-ODT-EPA-Fish Oil (FISH OIL) 1,000 mg (120 mg-180 mg) cap Take 1 capsule by mouth twice daily. No current facility-administered medications on file prior to visit. Social History Social History Tobacco Use Smoking status: Never Smokeless tobacco: Never Vaping Use Vaping Use: Never used Substance Use Topics Alcohol use: Not Currently Drug use: Never EXAM: BP 118/76 (BP Site: Left Arm, BP Position: Sitting, BP Cuff Size: Regular Adult) Pulse 60 Resp 18 Wt 95.3 kg (210 lb) BMI 28.48 kg/m General Appearance: Well appearing, alert, in no acute distress, well-hydrated, well nourished. and Overweight. Lungs: Lungs clear to auscultation. No wheezing, rhonchi, rales.. Heart: RRR without murmur, gallop, or rubs. No ectopy. Extremities: Arthritic fingers on right hand. Arthritic appearing on evaluation. No edema in b/l lower legs. Possible arthritis in knee's causing pain. Health Maintenance List RSV Vaccine(1 - 1-dose 60+ series) Never done Shingrix Vaccine(2 of 2) due on 04/07/2018 Influenza Vaccine(1) due on 12/23/2022 Covid-19 Vaccine( season) due on 12/23/2022 Advance Directive Discussion Never done Depression Assessment due on 04/24/2023 Hepatitis C Screening due on 08/26/2023 Serum Creatinine due on 08/02/2023 Hemoglobin/Hematocrit due on 08/02/2023 Annual PCP Team Chronic Disease Visit due on 11/26/2023 BP Controlled (<130/80) due on 11/26/2023 Colorectal Cancer Screening due on 08/02/2024 Diabetes Screening due on 08/01/2025 Lipid Screening due on 08/02/2027 DTaP,Tdap,Td Vaccine(3 - Td or Tdap) due on 02/11/2032 Pneumococcal Vaccine: 65+ Completed Data reviewed Appointment on 05/29/2023 Component Date Value Cholesterol, Total 05/29/2023 176 Triglyceride 05/29/2023 105 HDL Cholesterol 05/29/2023 29 (L) Non HDL Cholesterol 05/29/2023 147 (H) Fasting Time 05/29/2023 12 VLDL Cholesterol 05/29/2023 21 TC:HDL Ratio 05/29/2023 6.07 (H) LDL Cholesterol 05/29/2023 126 (H) LDL:HDL Ratio 05/29/2023 4.34 (H) Protein, Total 05/29/2023 7.9 Albumin 05/29/2023 4.1 Calcium, Total 05/29/2023 10.3 (H) Bilirubin, Total 05/29/2023 0.5 Alkaline Phosphatase 05/29/2023 63 AST 05/29/2023 15 ALT 05/29/2023 13 Glucose 05/29/2023 101 (H) BUN 05/29/2023 47 (H) Creatinine 05/29/2023 2.12 (H) Sodium 05/29/2023 138 Potassium 05/29/2023 5.1 Chloride 05/29/2023 100 CO2 05/29/2023 25 Anion Gap 05/29/2023 13 Estimated Glomerular Josias* 05/29/2023 32 (L) WBC 05/29/2023 9.01 RBC 05/29/2023 5.05 Hemoglobin 05/29/2023 14.6 Hematocrit 05/29/2023 43.5 MCV 05/29/2023 86.1 MCH 05/29/2023 28.9 MCHC 05/29/2023 33.6 RDW-CV 05/29/2023 13.7 Platelet Count 05/29/2023 267 MPV 05/29/2023 12.0 NRBC 05/29/2023 0.0 Absolute nRBC 05/29/2023 <0.01 Neutrophils % 05/29/2023 72.2 Abs Neut (Segs + Bands) 05/29/2023 6.51 Lymphocytes % 05/29/2023 10.4 Abs Lymph (Normal + Reac* 05/29/2023 0.94 (L) Monocytes % 05/29/2023 9.6 Abs Lander 05/29/2023 0.86 Eosin% 05/29/2023 5.2 Abs Eosin 05/29/2023 0.47 (H) Basophils % 05/29/2023 2.6 Abs Baso 05/29/2023 0.23 (H) Platelet Estimate 05/29/2023 Adequate Red Cell Morph 05/29/2023 Reviewed: see results of individual morphologies Polychromasia 05/29/2023 Slight Ovalocytes 05/29/2023 Few Tear Drop Cells 05/29/2023 Few Diff Type 05/29/2023 Manual PSA Screening 05/29/2023 1.71 ASSESSMENT/PLAN: 1. Essential hypertension - ICD9: 401.9, ICD10: I10 (primary diagnosis) - Controlled - Continue current medications - Recommend home blood pressure monitoring, to bring results to next visit - Encouraged sodium restriction, DASH or Mediterranean diet - Recommend regular aerobic exercise 2. Pure hypercholesterolemia - ICD9: 272.0, ICD10: E78.00 - Stable from previous labs - Continue watching diet and exercise as able 3. Primary insomnia - ICD9: 307.42, ICD10: F51.01 - Stable with use of medication 4. Stage 3a chronic kidney disease (HCC) - ICD9: 585.3, ICD10: N18.31 - Labs stable from previous with some areas going lower, others slightly higher - Continue monitoring. Avoid use of NSAID's and use at a lower dosage, stay hydrated 5. Benign prostatic hyperplasia with lower urinary tract symptoms, symptom details unspecified - ICD9: 600.01, ICD10: N40.1 - Stable - Cont monitoring 6. Urinary urgency - ICD9: 788.63, ICD10: R39.15 - Stable 7. Erectile dysfunction, unspecified erectile dysfunction type - ICD9: 607.84, ICD10: N52.9 - Continue current medication regimen. 8. Arthralgia of right hand - ICD9: 719.44, ICD10: M25.541 - Arthritic appearing on exam - Use Aleve prn, heat - Will monitor labs 9. Arthralgia, unspecified joint - ICD9: 719.40, ICD10: M25.50 - Use heat, stretch, Aleve prn 6 mo f/u with labs. I agree with the Chief Complaint, ROS, and Past Histories independently gathered by the clinical support specialist and the remaining scribed note accurately describes my personal service to the patient. Medical Decision Making: Problems: Moderate: 2+ stable chronic illnesses Data: Unique test result(s) reviewed: 3+ Unique test(s) ordered: 3+ Risk: Moderate: Drug management Medical Decision Making Level: 4 - Moderate Miriam Aguayo MD The documentation for this note was completed by Selina Conde Ma acting as scribe for Miriam Aguayo MD. May 30, 2023 10:52 AM. Selina Conde Ma documented in this encounter [facility] 11-25-2022 Miscellaneous Notes OK to order as requested Miriam Aguayo MD PA completed for dispensing 90 capsules and was denied insurance will only cover 30. Patient was notified and aware. Requested to resend to local pharm for 30 supply Veronica William Ma documented in this encounter [facility] 11-25-2022 Note HNO ID: [id number] Author: Miriam Aguayo MD Service: ? Author Type: Physician Type: Progress Notes Filed: 11/25/2022 2:40 PM Note Text: Chief Complaint Patient presents with: F/U 3 Month HPI Bev Norris Jr. is a 76 year old male who presents here today for 3 month follow up. Has a few trips planned. Going to the [employer] for a few days in [place] and then going to [facility]. Going to the [place] to see the [employer] in Nov. Has an advanced directive. Depression screening: denies feeling depressed or hopeless. No bowel, Gi issues. Still has chronic dribbling and urinary urgency. Uses pads. He does not follow with Uro/Nephro. He uses Cialis 20 mg prn for ED however it doesn't really help. Still has issues with getting a hard enough erection. He was started on Testosterone 1 mL every 2 weeks to help with BPH and ED. He stopped the Testosterone due to having a lot of joint pain, he stopped it 3 weeks ago and slowly improving. He saw Ortho due to the hips bothering him so much, had xrays doesn't need any hip replacements, treated with week of Prednisone which helped a lot. He feels he is doing ok without the testosterone, didn't seem to help much with the ED. Lipid: Not currently on any statins, controlling with diet and exercise. He has lost weight, staying steady at 200 lbs. HTN: Checking his BP at home with readings WNL. Denies any chest pains, dizziness, or unusual SOB. 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 Taking Lopressor 100 mg BID, Norvasc 5 mg daily, and Prinzide 20-[address] Segundo, Cardiothoracic surgeon in [place]. Insomnia: Stable with Melatonin 5 mg as needed and Trazodone 100 mg at bedtime, and prn Restoril when he hasn't slept well in several nights. SOB: Chronic due to lung herniation. 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 Segundo, Cardiothoracic surgeon. He states that he is breathing better since losing weight. Ear: left; hearing changes. He checked his hearing aid and noticed that the dome was missing on it. Had his girlfriend look in the ear but she couldn't see anything in the ear. He has tried to see if anything was in the ear with tweezers and q-tips. Past medical history, appointments, medications, allergies reviewed. Previous Medical History PAST MEDICAL HISTORY Diagnosis Date Carpal tunnel syndrome 08/06/2012 left wrist Presence of prosthesis right knee 11/24/06 and left knee 09/11/13 Previous Surgical History PAST SURGICAL HISTORY Procedure Laterality Date COLON SURGERY HX Left 03/13/2014 Left hemioclectomy for diverticulitis COLONOSCOPY 2003, 2010, and 11/18/2014 COLONOSCOPY N/A 08/02/2021 HERNIA REPAIR HX 01/15/2015 Dr. Yunior Yañez HERNIA REPAIR HX 10/04/2004 ventral umbilical IANDD ABSC COMPL OR MULTI 04/25/2014 LUQ abcess with wound vac IR US GUIDE VASCULAR ACCESS Left 09/23/2014 VR CR IR US Guided LUQ abdominal mass-Dr. Gael Garcia KNEE SURGERY HX Left 06/04/2002 ACLm repair KNEE SURGERY HX Left 11/11/1997 LAPAROSCOPIC CHOLECYSTECTOMY 11/19/2014 Dr. Yunior Yañez PAST SURGICAL HISTORY OF 04/25/2014 explantation of VHR mesh SHOULDER SURGERY HX Right 1970 biopsy SINUS SURGERY HX 11/05/2013 TOE SURGERY HX Right 09/15/1989 little toe TYMPANOPLASTY W/O MASTOIDECT W/O OSSICLE RECNSTJ Right 05/06/1985 VASECTOMY UNI/BI SPX W/POSTOP SEMEN EXAMS 1976 Family History FAMILY HISTORY Problem Relation Age of Onset Cancer Mother Endometrial Lung Cancer Mother Smoker Heart Failure Father Diabetes Father Kidney Disease Father Patient Allergies ALLERGIES No Known Allergies Current Medications Current Outpatient Medications on File Prior to Visit Medication Sig testosterone cypionate (DEPO-TESTOSTERONE) 100 mg/mL injection Inject 1 mL intramuscularly every 2 weeks for 140 days. aspirin, enteric coated (ASPIRIN, ENTERIC COATED) 81 mg EC tablet Take 1 tablet by mouth once daily. Take 2 tabs by mouth once daily Tadalafil (CIALIS) 20 mg tab(s) Take 1 tablet by mouth as needed. Take 30-60 minutes prior to sexual activity traZODone (DESYREL) 100 mg tablet Take 1 tablet by mouth at bedtime as needed. lisinopril-hydroCHLOROthiazide (PRINZIDE, ZESTORETIC) 20-25 mg per tablet Take 1 tablet by mouth once daily. amLODIPine (NORVASC) 5 mg tablet Take 1 tablet by mouth once daily. metoprolol tartrate, short acting, (LOPRESSOR) 100 mg tablet Take 1 tablet by mouth twice daily. valACYclovir (VALTREX) 1 gram Take 1 tablet by mouth once daily. melatonin 10 mg cap Take 10 mg by mouth at bedtime as needed. Cholecalciferol, Vitamin D3, 50 mcg (2,000 unit) cap Take 1 capsule by mouth once daily. multivit-min/FA/lycopen/lutein (CENTRUM SILVER MEN ORAL) 1 tablet once daily. hokncyfo-rygoigaxwif-kglh cb25 116-100 mg cap Take 1 tablet by mouth once daily. Qpjax-4-IDT-EPA-Fish Oil (FISH OIL) 1,000 mg (120 mg-180 mg (more content not included)... [facility] 11-25-2022 History of Present illness Narrative Chief Complaint Patient presents with: F/U 3 Month HPI Bev Norris Jr. is a 76 year old male who presents here today for 3 month follow up. Has a few trips planned. Going to the [employer] for a few days in [place] and then going to [facility]. Going to the [place] to see the [employer] in Nov. Has an advanced directive. Depression screening: denies feeling depressed or hopeless. No bowel, Gi issues. Still has chronic dribbling and urinary urgency. Uses pads. He does not follow with Uro/Nephro. He uses Cialis 20 mg prn for ED however it doesn't really help. Still has issues with getting a hard enough erection. He was started on Testosterone 1 mL every 2 weeks to help with BPH and ED. He stopped the Testosterone due to having a lot of joint pain, he stopped it 3 weeks ago and slowly improving. He saw Ortho due to the hips bothering him so much, had xrays doesn't need any hip replacements, treated with week of Prednisone which helped a lot. He feels he is doing ok without the testosterone, didn't seem to help much with the ED. Lipid: Not currently on any statins, controlling with diet and exercise. He has lost weight, staying steady at 200 lbs. HTN: Checking his BP at home with readings WNL. Denies any chest pains, dizziness, or unusual SOB. 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 Taking Lopressor 100 mg BID, Norvasc 5 mg daily, and Prinzide 20-[address] Segundo, Cardiothoracic surgeon in [place]. Insomnia: Stable with Melatonin 5 mg as needed and Trazodone 100 mg at bedtime, and prn Restoril when he hasn't slept well in several nights. SOB: Chronic due to lung herniation. 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 Segundo, Cardiothoracic surgeon. He states that he is breathing better since losing weight. Ear: left; hearing changes. He checked his hearing aid and noticed that the dome was missing on it. Had his girlfriend look in the ear but she couldn't see anything in the ear. He has tried to see if anything was in the ear with tweezers and q-tips. Past medical history, appointments, medications, allergies reviewed. Previous Medical History PAST MEDICAL HISTORY Diagnosis Date Carpal tunnel syndrome 08/06/2012 left wrist Presence of prosthesis right knee 11/24/06 and left knee 09/11/13 Previous Surgical History PAST SURGICAL HISTORY Procedure Laterality Date COLON SURGERY HX Left 03/13/2014 Left hemioclectomy for diverticulitis COLONOSCOPY 2003, 2010, and 11/18/2014 COLONOSCOPY N/A 08/02/2021 HERNIA REPAIR HX 01/15/2015 Dr. Yunior Yañez HERNIA REPAIR HX 10/04/2004 ventral umbilical I&D ABSC COMPL OR MULTI 04/25/2014 LUQ abcess with wound vac IR US GUIDE VASCULAR ACCESS Left 09/23/2014 VR CR IR US Guided LUQ abdominal mass-Dr. Gael Garcia KNEE SURGERY HX Left 06/04/2002 ACLm repair KNEE SURGERY HX Left 11/11/1997 LAPAROSCOPIC CHOLECYSTECTOMY 11/19/2014 Dr. Yunior Yañez PAST SURGICAL HISTORY OF 04/25/2014 explantation of VHR mesh SHOULDER SURGERY HX Right 1970 biopsy SINUS SURGERY HX 11/05/2013 TOE SURGERY HX Right 09/15/1989 little toe TYMPANOPLASTY W/O MASTOIDECT W/O OSSICLE RECNSTJ Right 05/06/1985 VASECTOMY UNI/BI SPX W/POSTOP SEMEN EXAMS 1977 Family History FAMILY HISTORY Problem Relation Age of Onset Cancer Mother Endometrial Lung Cancer Mother Smoker Heart Failure Father Diabetes Father Kidney Disease Father Patient Allergies ALLERGIES No Known Allergies Current Medications Current Outpatient Medications on File Prior to Visit Medication Sig testosterone cypionate (DEPO-TESTOSTERONE) 100 mg/mL injection Inject 1 mL intramuscularly every 2 weeks for 140 days. aspirin, enteric coated (ASPIRIN, ENTERIC COATED) 81 mg EC tablet Take 1 tablet by mouth once daily. Take 2 tabs by mouth once daily Tadalafil (CIALIS) 20 mg tab(s) Take 1 tablet by mouth as needed. Take 30-60 minutes prior to sexual activity traZODone (DESYREL) 100 mg tablet Take 1 tablet by mouth at bedtime as needed. lisinopril-hydroCHLOROthiazide (PRINZIDE, ZESTORETIC) 20-25 mg per tablet Take 1 tablet by mouth once daily. amLODIPine (NORVASC) 5 mg tablet Take 1 tablet by mouth once daily. metoprolol tartrate, short acting, (LOPRESSOR) 100 mg tablet Take 1 tablet by mouth twice daily. valACYclovir (VALTREX) 1 gram Take 1 tablet by mouth once daily. melatonin 10 mg cap Take 10 mg by mouth at bedtime as needed. Cholecalciferol, Vitamin D3, 50 mcg (2,000 unit) cap Take 1 capsule by mouth once daily. multivit-min/FA/lycopen/lutein (CENTRUM SILVER MEN ORAL) 1 tablet once daily. yflhuovr-zhbsjfvnpin-guvi cb25 116-100 mg cap Take 1 tablet by mouth once daily. Cbvhi-0-AXC-EPA-Fish Oil (FISH OIL) 1,000 mg (120 mg-180 mg) cap Take 1 capsule by mouth twice daily. No current facility-administered medications on file prior to visit. Social History Social History Tobacco Use Smoking status: Never Smokeless tobacco: Never Vaping Use Vaping Use: Never used Substance Use Topics Alcohol use: Not Currently Drug use: Never EXAM: BP 122/70 Pulse 68 Resp 16 Wt 93.1 kg (205 lb 3.2 oz) BMI 27.83 kg/m General Appearance: Well appearing, alert, in no acute distress, well-hydrated, well nourished.. Ears: clear plastic foreign body visible in left ear canal. Lungs: Lungs clear to auscultation. No wheezing, rhonchi, rales.. Heart: RRR without murmur, gallop, or rubs. No ectopy. Health Maintenance List SHINGRIX VACCINE(2 of 2) due on 04/07/2018 COVID-19 VACCINE(5 - Pfizer series) due on 09/17/2021 ADVANCE DIRECTIVE DISCUSSION Never done DEPRESSION ASSESSMENT due on 04/24/2022 HEPATITIS C SCREENING due on 08/26/2023 INFLUENZA(1) due on 12/23/2022 SERUM CREATININE due on 08/02/2023 HEMOGLOBIN/HEMATOCRIT due on 08/02/2023 ANNUAL PCP TEAM CHRONIC DISEASE VISIT due on 08/26/2023 BP CONTROLLED (<130/80) due on 08/26/2023 COLORECTAL CANCER SCREENING due on 08/02/2024 DIABETES SCREEN due on 08/01/2025 LIPID SCREEN due on 08/02/2027 DTAP,TDAP,TD(3 - Td or Tdap) due on 02/11/2032 PNEUMOCOCCAL: 65+ Completed Data reviewed None Testosterone lab still in process ASSESSMENT/PLAN: 1. Essential hypertension - ICD9: 401.9, ICD10: I10 (primary diagnosis) - Controlled - Continue current medications - Recommend home blood pressure monitoring, to bring results to next visit - Encouraged sodium restriction, DASH or Mediterranean diet - Recommend regular aerobic exercise - LIPID PANEL BASIC - COMP METABOLIC PANEL - CBC + DIFF 2. Erectile dysfunction, unspecified erectile dysfunction type - ICD9: 607.84, ICD10: N52.9 - TADALAFIL 20 MG TABLET 3. Primary insomnia - ICD9: 307.42, ICD10: F51.01 Continue current medications. - TEMAZEPAM 15 MG CAPSULE 4. Pure hypercholesterolemia - ICD9: 272.0, ICD10: E78.00 - LIPID PANEL BASIC - COMP METABOLIC PANEL 5. Benign prostatic hyperplasia with lower urinary tract symptoms, symptom details unspecified - ICD9: 600.01, ICD10: N40.1 - PSA/PROSTSPECAG SCRN Follow up in 6 months with fasting labs prior. Medical Decision Making: Problems: Moderate: 2+ stable chronic illnesses Data: Unique test(s) ordered: 2 Risk: Moderate: Drug management Medical Decision Making Level: 4 - Moderate Miriam Aguayo MD documented in this encounter [facility] 08-25-2022 Note HNO ID: [id number] Author: Miriam Aguayo MD Service: ? Author Type: Physician Type: Progress Notes Filed: 08/25/2022 5:39 PM Note Text: Chief Complaint Patient presents with: F/U 6 Month HPI Bev Norris Jr. is a 76 year old male who presents here today for a 6 month follow up. Pt here today for his routine follow up. Has a girlfriend now, met her while on a cruise. Went on a cruise last month, was 17 days. Will be heading out west in the next couple weeks with his girlfriend for a graduation and to see [facility] and [facility] [place]. GI/Uro - Does have dribbling, chronic. Wears pads due to urinary urgency. No longer seeing Urology/Nephrology, saw them in 2020. ED - Stable with use of Cialis 20 mg prn. Has not used this in a while, doesn't seem to help symptoms. He's not able to get an erection that's hard enough to penetrate while having intercourse. Reviewed with pt the side effects of using testosterone including heart attack and , and he would like to go ahead, he wanted to try injectable testosterone. Has looked into treatments in [place] for ED. HTN - Checks BP at home rarely due to BP doing well when checking. Denies any chest pain or dizziness. 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 Hx of PVC's per pt, but no issues. Pt on current regimen of Prinzide 20-25 mg once daily, Lopressor 100 mg bid and Norvasc 5 mg 1 tabs po once daily. Has seen Cardiothoracic Surgeon, Dr. Segundo in [place], but no f/u since. Lipids - Continues to try and work on his diet and losing weight. He's choosing better foods to eat, reducing his portion sizes and carb intake. Walks when he can for exercise. Currently on no medications. Insomnia - Stable with use of Trazodone 100 mg at bedtime and Melatonin 5 mg prn. Does use prn Restoril if his sleeping hasn't been good for a few days. States that his combo of Trazodone and Melatonin has been working lately. Pulm - Hx of sob due to lung herniation. Has followed with Cardiothoracic Surgeon, but no longer seeing. No longer f/u with Pulm. 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 HM - Declines Hep C screening. Does have Adv Dir/Living Will. Denies feeling down, depressed or hopeless. Had one Shingles vaccine, will check with pharmacy regarding shingles vaccine. Pharmacist said he was okay in regards to Covid vaccine. Past medical history, appointments, medications, allergies reviewed. Previous Medical History PAST MEDICAL HISTORY Diagnosis Date Carpal tunnel syndrome 08/06/2012 left wrist Presence of prosthesis right knee 11/24/06 and left knee 09/11/13 Previous Surgical History PAST SURGICAL HISTORY Procedure Laterality Date COLON SURGERY HX Left 03/13/2014 Left hemioclectomy for diverticulitis COLONOSCOPY 2003, 2010, and 11/18/2014 COLONOSCOPY N/A 08/02/2021 HERNIA REPAIR HX 01/15/2015 Dr. Yunior Yañez HERNIA REPAIR HX 10/04/2004 ventral umbilical IANDD ABSC COMPL OR MULTI 04/25/2014 LUQ abcess with wound vac IR US GUIDE VASCULAR ACCESS Left 09/23/2014 VR CR IR US Guided LUQ abdominal mass-Dr. Gael Garcia KNEE SURGERY HX Left 06/04/2002 ACLm repair KNEE SURGERY HX Left 11/11/1997 LAPAROSCOPIC CHOLECYSTECTOMY 11/19/2014 Dr. Yunior Yañez PAST SURGICAL HISTORY OF 04/25/2014 explantation of VHR mesh SHOULDER SURGERY HX Right 1970 biopsy SINUS SURGERY HX 11/05/2013 TOE SURGERY HX Right 09/15/1989 little toe TYMPANOPLASTY W/O MASTOIDECT W/O OSSICLE RECNSTJ Right 05/06/1985 VASECTOMY UNI/BI SPX W/POSTOP SEMEN EXAMS 1976 Family History FAMILY HISTORY Problem Relation Age of Onset Cancer Mother Endometrial Lung Cancer Mother Smoker Heart Failure Father Diabetes Father Kidney Disease Father Patient Allergies ALLERGIES No Known Allergies Current Medications Current Outpatient Medications on File Prior to Visit Medication Sig aspirin, enteric coated (ASPIRIN, ENTERIC COATED) 81 mg EC tablet Take 1 tablet by mouth once daily. Take 2 tabs by mouth once daily Tadalafil (CIALIS) 20 mg tab(s) Take 1 tablet by mouth as needed. Take 30-60 minutes prior to sexual activity traZODone (DESYREL) 100 mg tablet Take 1 tablet by mouth at bedtime as needed. lisinopril-hydroCHLOROthiazide (PRINZIDE, ZESTORETIC) 20-25 mg per tablet Take 1 tablet by mouth once daily. amLODIPine (NORVASC) 5 mg tablet Take 1 tablet by mouth once daily. metoprolol tartrate, short acting, (LOPRESSOR) 100 mg tablet Take 1 tablet by mouth twice daily. valACYclovir (VALTREX) 1 gram Take 1 tablet by mouth once daily. methylsulfonylmethane (MSM ORAL) Take 400 mg by mouth. psyllium seed, with dextrose, (FIBER ORAL) Take by mouth. Sullivan mucil 1 tablespoon fluticasone (FLONASE) 50 mcg/actuation nasal spray 2 Sprays daily at bedtime. melatonin 10 mg cap Take 10 mg by mouth at bedtime as needed. Cholecalciferol, Vitamin D3, 50 mcg (2,000 unit) cap Take 1 capsule by mouth once daily. (more content not included)... [facility] 08-25-2022 History of Present illness Narrative Chief Complaint Patient presents with: F/U 6 Month HPI Bev Norris Jr. is a 76 year old male who presents here today for a 6 month follow up. Pt here today for his routine follow up. Has a girlfriend now, met her while on a cruise. Went on a cruise last month, was 17 days. Will be heading out west in the next couple weeks with his girlfriend for a graduation and to see [place] and [place]. GI/Uro - Does have dribbling, chronic. Wears pads due to urinary urgency. No longer seeing Urology/Nephrology, saw them in 2020. ED - Stable with use of Cialis 20 mg prn. Has not used this in a while, doesn't seem to help symptoms. He's not able to get an erection that's hard enough to penetrate while having intercourse. Reviewed with pt the side effects of using testosterone including heart attack and , and he would like to go ahead, he wanted to try injectable testosterone. Has looked into treatments in [place] for ED. HTN - Checks BP at home rarely due to BP doing well when checking. Denies any chest pain or dizziness. 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 Hx of PVC's per pt, but no issues. Pt on current regimen of Prinzide 20-25 mg once daily, Lopressor 100 mg bid and Norvasc 5 mg 1 tabs po once daily. Has seen Cardiothoracic Surgeon, Dr. Segundo in [place], but no f/u since. Lipids - Continues to try and work on his diet and losing weight. He's choosing better foods to eat, reducing his portion sizes and carb intake. Walks when he can for exercise. Currently on no medications. Insomnia - Stable with use of Trazodone 100 mg at bedtime and Melatonin 5 mg prn. Does use prn Restoril if his sleeping hasn't been good for a few days. States that his combo of Trazodone and Melatonin has been working lately. Pulm - Hx of sob due to lung herniation. Has followed with Cardiothoracic Surgeon, but no longer seeing. No longer f/u with Pulm. 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 HM - Declines Hep C screening. Does have Adv Dir/Living Will. Denies feeling down, depressed or hopeless. Had one Shingles vaccine, will check with pharmacy regarding shingles vaccine. Pharmacist said he was okay in regards to Covid vaccine. Past medical history, appointments, medications, allergies reviewed. Previous Medical History PAST MEDICAL HISTORY Diagnosis Date Carpal tunnel syndrome 08/06/2012 left wrist Presence of prosthesis right knee 11/24/06 and left knee 09/11/13 Previous Surgical History PAST SURGICAL HISTORY Procedure Laterality Date COLON SURGERY HX Left 03/13/2014 Left hemioclectomy for diverticulitis COLONOSCOPY 2003, 2010, and 11/18/2014 COLONOSCOPY N/A 08/02/2021 HERNIA REPAIR HX 01/15/2015 Dr. Yunior Yañez HERNIA REPAIR HX 10/04/2004 ventral umbilical I&D ABSC COMPL OR MULTI 04/25/2014 LUQ abcess with wound vac IR US GUIDE VASCULAR ACCESS Left 09/23/2014 VR CR IR US Guided LUQ abdominal mass-Dr. Gael Garcia KNEE SURGERY HX Left 06/04/2002 ACLm repair KNEE SURGERY HX Left 11/11/1997 LAPAROSCOPIC CHOLECYSTECTOMY 11/19/2014 Dr. Yunior Yañez PAST SURGICAL HISTORY OF 04/25/2014 explantation of VHR mesh SHOULDER SURGERY HX Right 1969 biopsy SINUS SURGERY HX 11/05/2013 TOE SURGERY HX Right 09/15/1989 little toe TYMPANOPLASTY W/O MASTOIDECT W/O OSSICLE RECNSTJ Right 05/06/1985 VASECTOMY UNI/BI SPX W/POSTOP SEMEN EXAMS 1977 Family History FAMILY HISTORY Problem Relation Age of Onset Cancer Mother Endometrial Lung Cancer Mother Smoker Heart Failure Father Diabetes Father Kidney Disease Father Patient Allergies ALLERGIES No Known Allergies Current Medications Current Outpatient Medications on File Prior to Visit Medication Sig aspirin, enteric coated (ASPIRIN, ENTERIC COATED) 81 mg EC tablet Take 1 tablet by mouth once daily. Take 2 tabs by mouth once daily Tadalafil (CIALIS) 20 mg tab(s) Take 1 tablet by mouth as needed. Take 30-60 minutes prior to sexual activity traZODone (DESYREL) 100 mg tablet Take 1 tablet by mouth at bedtime as needed. lisinopril-hydroCHLOROthiazide (PRINZIDE, ZESTORETIC) 20-25 mg per tablet Take 1 tablet by mouth once daily. amLODIPine (NORVASC) 5 mg tablet Take 1 tablet by mouth once daily. metoprolol tartrate, short acting, (LOPRESSOR) 100 mg tablet Take 1 tablet by mouth twice daily. valACYclovir (VALTREX) 1 gram Take 1 tablet by mouth once daily. methylsulfonylmethane (MSM ORAL) Take 400 mg by mouth. psyllium seed, with dextrose, (FIBER ORAL) Take by mouth. Sullivan mucil 1 tablespoon fluticasone (FLONASE) 50 mcg/actuation nasal spray 2 Sprays daily at bedtime. melatonin 10 mg cap Take 10 mg by mouth at bedtime as needed. Cholecalciferol, Vitamin D3, 50 mcg (2,000 unit) cap Take 1 capsule by mouth once daily. multivit-min/FA/lycopen/lutein (CENTRUM SILVER MEN ORAL) 1 tablet once daily. zbbphuvr-bsfyxdxwbzm-khik cb25 116-100 mg cap Take 1 tablet by mouth once daily. Siost-7-KDP-EPA-Fish Oil (FISH OIL) 1,000 mg (120 mg-180 mg) cap Take 1 capsule by mouth twice daily. No current facility-administered medications on file prior to visit. Social History Social History Tobacco Use Smoking status: Never Smokeless tobacco: Never Vaping Use Vaping Use: Never used Substance Use Topics Alcohol use: Not Currently Drug use: Never EXAM: BP 118/64 (BP Site: Left Arm, BP Position: Sitting, BP Cuff Size: Regular Adult) Pulse (!) 56 Resp 16 Wt 93.9 kg (207 lb) BMI 28.07 kg/m General Appearance: Well appearing, alert, in no acute distress, well-hydrated, well nourished.. Lungs: Lungs clear to auscultation. No wheezing, rhonchi, rales.. Heart: RRR without murmur, gallop, or rubs. No ectopy. Health Maintenance List HEPATITIS C SCREENING Never done SHINGRIX VACCINE(2 of 2) due on 04/07/2018 COVID-19 VACCINE(5 - Booster for Pfizer series) due on 09/17/2021 ADVANCE DIRECTIVE DISCUSSION Never done DEPRESSION ASSESSMENT due on 04/24/2022 ANNUAL PCP TEAM CHRONIC DISEASE VISIT due on 02/10/2023 BP CONTROLLED (<130/80) due on 02/10/2023 SERUM CREATININE due on 08/02/2023 HEMOGLOBIN/HEMATOCRIT due on 08/02/2023 COLORECTAL CANCER SCREENING due on 08/02/2024 DIABETES SCREEN due on 08/01/2025 LIPID SCREEN due on 08/02/2027 DTAP,TDAP,TD(3 - Td or Tdap) due on 02/11/2032 INFLUENZA Completed PNEUMOCOCCAL: 65+ Completed Data reviewed Appointment on 08/01/2022 Component Date Value Protein, Total 08/01/2022 7.2 Albumin 08/01/2022 3.9 Calcium, Total 08/01/2022 9.4 Bilirubin, Total 08/01/2022 0.3 Alkaline Phosphatase 08/01/2022 69 AST 08/01/2022 16 ALT 08/01/2022 14 Glucose 08/01/2022 113 (A) BUN 08/01/2022 60 (A) Creatinine 08/01/2022 2.02 (A) Sodium 08/01/2022 137 Potassium 08/01/2022 3.9 Chloride 08/01/2022 102 CO2 08/01/2022 25 Anion Gap 08/01/2022 10 Estimated Glomerular Josias* 08/01/2022 34 (A) Cholesterol, Total 08/01/2022 189 Triglyceride 08/01/2022 154 (A) HDL Cholesterol 08/01/2022 27 (A) Non HDL Cholesterol 08/01/2022 162 (A) Fasting Time 08/01/2022 10 VLDL Cholesterol 08/01/2022 31 (A) TC:HDL Ratio 08/01/2022 7.00 (A) LDL Cholesterol 08/01/2022 131 (A) LDL:HDL Ratio 08/01/2022 4.85 (A) WBC 08/01/2022 7.98 RBC 08/01/2022 4.80 Hemoglobin 08/01/2022 14.2 Hematocrit 08/01/2022 41.6 MCV 08/01/2022 86.7 MCH 08/01/2022 29.6 MCHC 08/01/2022 34.1 RDW-CV 08/01/2022 14.0 Platelet Count 08/01/2022 180 MPV 08/01/2022 11.7 NRBC 08/01/2022 0.0 Absolute nRBC 08/01/2022 <0.01 Neutrophils % 08/01/2022 65.0 Abs Neut (Segs + Bands) 08/01/2022 5.19 Lymphocytes % 08/01/2022 22.0 Abs Lymph (Normal + Reac* 08/01/2022 1.76 Monocytes % 08/01/2022 9.0 Abs Lander 08/01/2022 0.72 Eosin% 08/01/2022 3.0 Abs Eosin 08/01/2022 0.24 Basophils % 08/01/2022 0.0 Abs Baso 08/01/2022 0.00 Sullivan % 08/01/2022 1.0 Platelet Estimate 08/01/2022 Adequate Red Cell Morph 08/01/2022 Reviewed: normal Diff Type 08/01/2022 Manual TESTOSTERONE, FREE, S 08/01/2022 6.46 TESTOSTERONE, TOTAL, S 08/01/2022 249 ASSESSMENT/PLAN: 1. Essential hypertension - ICD9: 401.9, ICD10: I10 (primary diagnosis) - good control - Continue current medication(s) - Recommended regular aerobic exercise. - Recommend home blood pressure monitoring, to bring results in on next visit - Goal of BP <140/90 2. Stage 3a chronic kidney disease (HCC) - ICD9: 585.3, ICD10: N18.31 3. Benign prostatic hyperplasia with lower urinary tract symptoms, symptom details unspecified - ICD9: 600.01, ICD10: N40.1 - TESTOSTERONE, FREE AND TOTAL - TESTOSTERONE CYPIONATE 100 MG/ML INTRAMUSCULAR OIL 4. Pure hypercholesterolemia - ICD9: 272.0, ICD10: E78.00 5. Primary insomnia - ICD9: 307.42, ICD10: F51.01 6. Herniation of left lung - ICD9: 518.89, ICD10: J98.4 7. SOB (shortness of breath) - ICD9: 786.05, ICD10: R06.02 8. Erectile dysfunction, unspecified erectile dysfunction type - ICD9: 607.84, ICD10: N52.9 - TESTOSTERONE, FREE AND TOTAL - TESTOSTERONE CYPIONATE 100 MG/ML INTRAMUSCULAR OIL 3 mo f/u with labs I agree with the Chief Complaint, ROS, and Past Histories independently gathered by the clinical support specialist and the remaining scribed note accurately describes my personal service to the patient. Medical Decision Making: Problems: Moderate: New problem with uncertain prognosis and 2+ stable chronic illnesses Data: Unique test result(s) reviewed: 3+ Unique test(s) ordered: 1 Risk: Moderate: Drug management Medical Decision Making Level: 4 - Moderate Miriam Aguayo MD The documentation for this note was completed by Selina Conde Ma acting as scribe for Miriam Aguayo MD. August 25, 2022 11:05 AM. Selina Conde Ma documented in this encounter [facility] 07-22-2022 Miscellaneous Notes Pt notified. Janki Zhang Ma Testosterone level added to labs Miriam Aguayo MD Patient called requesting Dr Aguayo to add on a testosterone lab to the labs that are already ordered for his appointment scheduled 08/25 He can be reached at [phone] Thank you Ann Marie Metzger Pss documented in this encounter [facility] 02-10-2022 History of Present illness Narrative Chief Complaint Patient presents with: F/U 6 Month HPI Bev Norris Jr. is a 76 year old male who presents here today for 6 month follow up. Denies any bowel, Gi, or urinary issues. 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 ED - Notes trouble with ED. Was previously prescribed Cialis 20 mg from [facility] but is running low on his prescription. Lipid: Has lost 29 lbs since his last OV. Has been working on changing his diet by choosing better food options, reducing portion sizes and reducing carb intake. Started originally on [employer] but felt this was not all it cracked up to be, so he stopped doing it. No formal exercise, but does do walking at times. No longer taking Zetia 10 mg, has been off this medication for about 2 months. HTN: Checks BP at home on occasion. BP ranging from 93/56 - 131/74 No chest pains or dizziness. 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 Pt notes that when he was hooked up to monitor during Colonoscopy in July he was throwing PVC's, but this is not bothersome to him. Has had cardiac work up in the past. No issues at this time. Taking Norvasc 5 mg, 2 pills once daily, Lisinopril-HCTZ 20-25 mg daily and Lopressor 100 mg BID. Follows with Cardiothoracic Surgeon Dr. Segundo in [place]. Cold sores: Uses Valtrex prn. Insomnia: Taking Trazodone 100 mg at bedtime and Melatonin prn which is working for him. Will occasionally use Restoril 15 mg if he has not sleep well for several days. SOB which is caused by lung herniation. Was seeing Pulm Dr. Sarah. Follows with Cardiothoracic Surgeon prn. Pt denies any depression at current time. Previously felt lonely due his passing away. Also notes not happy with what's going on in the world. Pt at this time has had some improvement due to being in a new relationship. HM - Declines depression. Agrees to Flu Shot and Tdap. Has Adv Dir/Living Will. Past medical history, appointments, medications, allergies reviewed. Previous Medical History PAST MEDICAL HISTORY Diagnosis Date Carpal tunnel syndrome 08/06/2012 left wrist Presence of prosthesis right knee 11/24/06 and left knee 09/11/13 Previous Surgical History PAST SURGICAL HISTORY Procedure Laterality Date COLON SURGERY HX Left 03/13/2014 Left hemioclectomy for diverticulitis COLONOSCOPY 2003, 2010, and 11/18/2014 COLONOSCOPY N/A 08/02/2021 HERNIA REPAIR HX 01/15/2015 Dr. Yunior Yañez HERNIA REPAIR HX 10/04/2004 ventral umbilical I&D ABSC COMPL OR MULTI 04/25/2014 LUQ abcess with wound vac IR US GUIDE VASCULAR ACCESS Left 09/23/2014 VR CR IR US Guided LUQ abdominal mass-Dr. Gael Garcia KNEE SURGERY HX Left 06/04/2002 ACLm repair KNEE SURGERY HX Left 11/11/1997 LAPAROSCOPIC CHOLECYSTECTOMY 11/19/2014 Dr. Yunior Yañez PAST SURGICAL HISTORY OF 04/25/2014 explantation of VHR mesh SHOULDER SURGERY HX Right 1970 biopsy SINUS SURGERY HX 11/05/2013 TOE SURGERY HX Right 09/15/1989 little toe TYMPANOPLASTY W/O MASTOIDECT W/O OSSICLE RECNSTJ Right 05/06/1985 VASECTOMY UNI/BI SPX W/POSTOP SEMEN EXAMS 1976 Family History FAMILY HISTORY Problem Relation Age of Onset Cancer Mother Endometrial Lung Cancer Mother Smoker Heart Failure Father Diabetes Father Kidney Disease Father Patient Allergies ALLERGIES No Known Allergies Current Medications Current Outpatient Medications on File Prior to Visit Medication Sig metoprolol tartrate, short acting, (LOPRESSOR) 100 mg tablet Take 1 tablet by mouth twice daily. traZODone (DESYREL) 100 mg tablet Take 1 tablet by mouth at bedtime as needed. lisinopril-hydroCHLOROthiazide (PRINZIDE, ZESTORETIC) 20-25 mg per tablet Take 1 tablet by mouth once daily. ezetimibe (ZETIA) 10 mg tablet Take 1 tablet by mouth once daily. amLODIPine (NORVASC) 5 mg tablet Take 2 tablets by mouth once daily. valACYclovir (VALTREX) 1 gram Take 1 tablet by mouth once daily. methylsulfonylmethane (MSM ORAL) Take 400 mg by mouth. psyllium seed, with dextrose, (FIBER ORAL) Take by mouth. Sullivan mucil 1 tablespoon fluticasone (FLONASE) 50 mcg/actuation nasal spray 2 Sprays daily at bedtime. melatonin 10 mg cap Take 10 mg by mouth at bedtime as needed. Cholecalciferol, Vitamin D3, 50 mcg (2,000 unit) cap Take 1 capsule by mouth once daily. multivit-min/FA/lycopen/lutein (CENTRUM SILVER MEN ORAL) 1 tablet once daily. luursesb-qetsejhylyh-amgb cb25 116-100 mg cap Take 1 tablet by mouth once daily. Dmamf-9-IZP-EPA-Fish Oil (FISH OIL) 1,000 mg (120 mg-180 mg) cap Take 1 capsule by mouth twice daily. aspirin, enteric coated (ASPIRIN, ENTERIC COATED) 81 mg EC tablet Take 81 mg by mouth. ibuprofen (MOTRIN) 600 mg tablet Take 600 mg by mouth as needed. Psyllium Husk-Sucrose 3.4 gram/7 gram powd Take 1 Packet by mouth twice daily. No current facility-administered medications on file prior to visit. Social History Social History Tobacco Use Smoking status: Never Smokeless tobacco: Never Vaping Use Vaping Use: Never used Substance Use Topics Alcohol use: Not Currently Drug use: Never EXAM: BP 94/58 (BP Site: Right Arm, BP Position: Sitting, BP Cuff Size: Regular Adult) Pulse (!) 56 Resp 16 Wt 101.9 kg (224 lb 9.6 oz) BMI 30.46 kg/m General Appearance: Well appearing, alert, in no acute distress, well-hydrated, well nourished.. Lungs: Lungs clear to auscultation. No wheezing, rhonchi, rales.. Heart: RRR without murmur, gallop, or rubs. No ectopy. Health Maintenance List SHINGRIX VACCINE(2 of 2) due on 04/07/2018 ADVANCE DIRECTIVE DISCUSSION Never done DEPRESSION ASSESSMENT Never done COVID-19 VACCINE(5 - Booster for Pfizer series) due on 09/17/2021 INFLUENZA(1) due on 12/23/2021 DTAP,TDAP,TD(2 - Td or Tdap) due on 01/13/2022 HEPATITIS C SCREENING due on 02/16/2022 HEMOGLOBIN/HEMATOCRIT due on 08/04/2022 ANNUAL PCP TEAM CHRONIC DISEASE VISIT due on 08/10/2022 BP CONTROLLED (<130/80) due on 08/10/2022 SERUM CREATININE due on 02/03/2023 COLORECTAL CANCER SCREENING due on 08/02/2024 DIABETES SCREEN due on 02/03/2025 LIPID SCREEN due on 02/03/2027 PNEUMOCOCCAL: 65+ Completed Data reviewed Appointment on 02/03/2022 Component Date Value Cholesterol, Total 02/03/2022 166 Triglyceride 02/03/2022 115 HDL Cholesterol 02/03/2022 28 (A) Non HDL Cholesterol 02/03/2022 138 (A) Fasting Time 02/03/2022 26 VLDL Cholesterol 02/03/2022 23 TC:HDL Ratio 02/03/2022 5.93 (A) LDL Cholesterol 02/03/2022 115 (A) LDL:HDL Ratio 02/03/2022 4.11 (A) PSA 02/03/2022 1.15 Protein, Total 02/03/2022 7.6 Albumin 02/03/2022 4.1 Calcium, Total 02/03/2022 9.6 Bilirubin, Total 02/03/2022 0.4 Alkaline Phosphatase 02/03/2022 67 AST 02/03/2022 25 ALT 02/03/2022 24 Glucose 02/03/2022 97 BUN 02/03/2022 39 (A) Creatinine 02/03/2022 1.85 (A) Sodium 02/03/2022 136 Potassium 02/03/2022 4.2 Chloride 02/03/2022 101 CO2 02/03/2022 24 Anion Gap 02/03/2022 11 Estimated Glomerular Josias* 02/03/2022 38 (A) ASSESSMENT/PLAN: 1. Essential hypertension - ICD9: 401.9, ICD10: I10 (primary diagnosis) - good control - Continue current medication(s) - Decrease amlodipine (Norvasc) to once daily, due to lower BP. - Recommended regular aerobic exercise. - Recommend home blood pressure monitoring, to bring results in on next visit - Goal of BP <130/80 - LISINOPRIL 20 MG-HYDROCHLOROTHIAZIDE 25 MG TABLET - AMLODIPINE 5 MG TABLET 2. SOB (shortness of breath) - ICD9: 786.05, ICD10: R06.02 - Stable; Chronic 3. Pure hypercholesterolemia - ICD9: 272.0, ICD10: E78.00 - Improved; without medication - Cont working on diet and exercise. 4. Stage 3a chronic kidney disease (HCC) - ICD9: 585.3, ICD10: N18.31 - Stable continue to monitor. 5. Primary insomnia - ICD9: 307.42, ICD10: F51.01 - Stable on current regimen - TRAZODONE 100 MG TABLET - TEMAZEPAM 15 MG CAPSULE 6. Benign prostatic hyperplasia with lower urinary tract symptoms, symptom details unspecified - ICD9: 600.01, ICD10: N40.1 - Stable 7. Erectile dysfunction, unspecified erectile dysfunction type - ICD9: 607.84, ICD10: N52.9 - Rx Cialis 20 mg prn 8. Herniation of left lung - ICD9: 518.89, ICD10: J98.4 Stable 9. Need for vaccination - ICD9: V05.9, ICD10: Z23 - TDAP VACCINE AGE 7+ IM - INFLUENZA SEASONAL QUADRIVALENT HIGH DOSE AGE 65+ 6 mo f/u with labs. I agree with the Chief Complaint, ROS, and Past Histories independently gathered by the clinical support specialist and the remaining scribed note accurately describes my personal service to the patient. Medical Decision Making: Problems: Moderate: 2+ stable chronic illnesses Data: Unique test result(s) reviewed: 3+ Risk: Moderate: Drug management Medical Decision Making Level: 4 - Moderate Miriam Aguayo MD The documentation for this note was completed by Selina Conde Ma acting as scribe for Miriam Aguayo MD. February 10, 2022 10:00 AM. Selina Conde Ma documented in this encounter [facility] 10-20-2021 Miscellaneous Notes Pt notified that disc he dropped of with his records is ready at [facility] [employer] for picker and packer. Records printed off and scanned into [employer]. Janki Zhang Ma documented in this encounter [facility] 08-10-2021 History of Present illness Narrative Chief Complaint Patient presents with: F/U 6 Month HPI Bev Norris Jr. is a 75 year old male who presents here today for 6 month follow up. Getting ready to go on a [address] [place] [address]. He is fully vaccinated with 2nd Booster. No bowel or gi issues. Had Colonoscopy done through outside Provider, on 08/02/21. Had polyps removed, adenomatous. Provider felt that he no longer requires a Colonoscopy. Still has issus with urinary incontinence and dribbling, which he uses a pad for. He no longer follows with Urologist as they suggested a Uro-Lift, he doesn't feel this is necessary as he has no issues with going. Asking about when his last PSA was. No longer following with Clip [facility]ater for CKD stage 3a. Has had protein in urine in the past. Lipid: Does not watch diet or exercise much. Notes that his Triglyceride are high, wonders if this is related to being off his Zetia for 1 week due to Colonoscopy procedure. He is on Zetia 10 mg daily, tolerating well. HTN: Denies checking BP at home or having chest pain or dizziness. Notes sob due to lung herniation. Currently taking Norvasc 5 mg, 2 pills once daily, Lisinopril-HCTZ 20-25 mg daily, and Lopressor 100 mg BID. He is no longer following with Cardio, [place] Provider left practice. Has Cardiothoracic Surgeon in [place], Dr. Segundo. He's not seen him in quite some time. Pulm: Lung herniation causes SOB. Has seen Pulmonary, Dr. Calzada in the past who states he has 60% function in his lung. Feels his breathing is stable, but does have sob. Derm: Cold sores; using Valtrex orally prn. Insomnia: Doing well with Trazodone 100 mg and Melatonin prn. Pt if not able to sleep for a few days will use Restoril 15 mg prn. HM - Has Adv Dir/Livin Will. Past medical history, appointments, medications, allergies reviewed. Previous Medical History PAST MEDICAL HISTORY Diagnosis Date Carpal tunnel syndrome 08/06/2012 left wrist Presence of prosthesis right knee 11/24/06 and left knee 09/11/13 Previous Surgical History PAST SURGICAL HISTORY Procedure Laterality Date COLON SURGERY HX Left 03/13/2014 Left hemioclectomy for diverticulitis COLONOSCOPY 2003, 2010, and 11/18/2014 HERNIA REPAIR HX 01/15/2015 Dr. Yunior Yañez HERNIA REPAIR HX 10/04/2004 ventral umbilical I&D ABSC COMPL OR MULTI 04/25/2014 LUQ abcess with wound vac IR US GUIDE VASCULAR ACCESS Left 09/23/2014 VR CR IR US Guided LUQ abdominal mass-Dr. Gael Garcia KNEE SURGERY HX Left 06/04/2002 ACLm repair KNEE SURGERY HX Left 11/11/1997 LAPAROSCOPIC CHOLECYSTECTOMY 11/19/2014 Dr. Yunior Yañez PAST SURGICAL HISTORY OF 04/25/2014 explantation of VHR mesh SHOULDER SURGERY HX Right 1969 biopsy SINUS SURGERY HX 11/05/2013 TOE SURGERY HX Right 09/15/1989 little toe TYMPANOPLASTY Right 05/06/1985 VASECTOMY 1977 Family History FAMILY HISTORY Problem Relation Age of Onset Cancer Mother Endometrial Lung Cancer Mother Smoker Heart Failure Father Diabetes Father Kidney Disease Father Patient Allergies ALLERGIES No Known Allergies Current Medications Current Outpatient Medications on File Prior to Visit Medication Sig metoprolol tartrate, short acting, (LOPRESSOR) 100 mg tablet Take 1 tablet by mouth twice daily. traZODone (DESYREL) 100 mg tablet Take 1 tablet by mouth at bedtime as needed. lisinopril-hydroCHLOROthiazide (PRINZIDE, ZESTORETIC) 20-25 mg per tablet Take 1 tablet by mouth once daily. ezetimibe (ZETIA) 10 mg tablet Take 1 tablet by mouth once daily. amLODIPine (NORVASC) 5 mg tablet Take 2 tablets by mouth once daily. valACYclovir (VALTREX) 1 gram Take 1 tablet by mouth once daily. methylsulfonylmethane (MSM ORAL) Take 400 mg by mouth. psyllium seed, with dextrose, (FIBER ORAL) Take by mouth. Sullivan mucil 1 tablespoon fluticasone (FLONASE) 50 mcg/actuation nasal spray 2 Sprays daily at bedtime. melatonin 10 mg cap Take 10 mg by mouth at bedtime as needed. Cholecalciferol, Vitamin D3, 50 mcg (2,000 unit) cap Take 1 capsule by mouth once daily. multivit-min/FA/lycopen/lutein (CENTRUM SILVER MEN ORAL) 1 tablet once daily. iixvlmhg-dybaeiaoxnr-enkp cb25 116-100 mg cap Take 1 tablet by mouth once daily. Asjde-1-LBK-EPA-Fish Oil (FISH OIL) 1,000 mg (120 mg-180 mg) cap Take 1 capsule by mouth twice daily. aspirin, enteric coated (ASPIRIN, ENTERIC COATED) 81 mg EC tablet Take 81 mg by mouth. ibuprofen (MOTRIN) 600 mg tablet Take 600 mg by mouth as needed. Psyllium Husk-Sucrose 3.4 gram/7 gram powd Take 1 Packet by mouth twice daily. No current facility-administered medications on file prior to visit. Social History Social History Tobacco Use Smoking status: Never Smoker Smokeless tobacco: Never Used Vaping Use Vaping Use: Never used Substance Use Topics Alcohol use: Not Currently Drug use: Never EXAM: BP 122/60 (BP Site: Left Arm, BP Position: Sitting, BP Cuff Size: Large Adult) Pulse (!) 58 Resp 16 Wt 114.8 kg (253 lb) BMI 34.31 kg/m General Appearance: Well appearing, alert, in no acute distress, well-hydrated, well nourished. and Obese. Lungs: Lungs clear to auscultation. No wheezing, rhonchi, rales.. Heart: RRR without murmur, gallop, or rubs. No ectopy. Health Maintenance List SHINGRIX VACCINE(1 of 2) Never done COLORECTAL CANCER SCREENING due on 11/14/2020 ADVANCE DIRECTIVE DISCUSSION Never done HEPATITIS C SCREENING due on 02/16/2022 DEPRESSION SCREENING due on 08/17/2021 SERUM CREATININE due on 09/02/2021 DTAP,TDAP,TD(2 - Td or Tdap) due on 01/13/2022 ANNUAL PCP TEAM CHRONIC DISEASE VISIT due on 02/16/2022 BP CONTROLLED (<130/80) due on 02/16/2022 HEMOGLOBIN/HEMATOCRIT due on 05/19/2022 DIABETES SCREEN due on 09/03/2023 LIPID SCREEN due on 09/02/2025 INFLUENZA Completed PNEUMOVAX AGE 65 AND OVER WITH 5YR LOOKBACK Completed COVID-19 VACCINE Completed MENINGOCOCCAL CONJUGATE Aged Out Data reviewed Appointment on 08/04/2021 Component Date Value Cholesterol, Total 08/04/2021 122 Triglyceride 08/04/2021 235 (A) HDL Cholesterol 08/04/2021 23 (A) Non HDL Cholesterol 08/04/2021 99 Fasting Time 08/04/2021 12 VLDL Cholesterol 08/04/2021 47 (A) TC:HDL Ratio 08/04/2021 5.30 (A) LDL Cholesterol 08/04/2021 52 LDL:HDL Ratio 08/04/2021 2.26 Protein, Total 08/04/2021 7.4 Albumin 08/04/2021 3.9 Calcium, Total 08/04/2021 9.2 Bilirubin, Total 08/04/2021 0.6 Alkaline Phosphatase 08/04/2021 56 AST 08/04/2021 22 ALT 08/04/2021 32 Glucose 08/04/2021 107 (A) BUN 08/04/2021 39 (A) Creatinine 08/04/2021 1.74 (A) Sodium 08/04/2021 137 Potassium 08/04/2021 4.3 Chloride 08/04/2021 103 CO2 08/04/2021 24 Anion Gap 08/04/2021 10 Estimated Glomerular Josias* 08/04/2021 41 (A) WBC 08/04/2021 7.74 RBC 08/04/2021 5.20 Hemoglobin 08/04/2021 15.6 Hematocrit 08/04/2021 45.2 MCV 08/04/2021 86.9 MCH 08/04/2021 30.0 MCHC 08/04/2021 34.5 RDW-CV 08/04/2021 13.4 Platelet Count 08/04/2021 190 MPV 08/04/2021 11.3 Neut% 08/04/2021 63.4 Abs Neut 08/04/2021 4.90 Lymph% 08/04/2021 20.3 Abs Lymph 08/04/2021 1.57 Lander% 08/04/2021 10.7 Abs Lander 08/04/2021 0.83 Eosin% 08/04/2021 3.2 Abs Eosin 08/04/2021 0.25 Baso% 08/04/2021 1.0 Abs Baso 08/04/2021 0.08 Immature Gran % 08/04/2021 1.4 Abs Immature Gran 08/04/2021 0.11 (A) NRBC 08/04/2021 0.0 Absolute nRBC 08/04/2021 <0.01 Diff Type 08/04/2021 Auto ASSESSMENT/PLAN: 1. Primary insomnia - ICD9: 307.42, ICD10: F51.01 (primary diagnosis) - Continue current medication regimen. - Call when needs refill temazepam 2. Essential hypertension - ICD9: 401.9, ICD10: I10 - good control - Continue current medication(s) - Recommended regular aerobic exercise. - Recommend home blood pressure monitoring, to bring results in on next visit - Goal of BP <130/80 - COMP METABOLIC PANEL - LIPID PANEL BASIC 3. Pure hypercholesterolemia - ICD9: 272.0, ICD10: E78.00 - Stable, watch diet and exercise - COMP METABOLIC PANEL - LIPID PANEL BASIC 4. Herniation of left lung - ICD9: 518.89, ICD10: J98.4 Stable 5. SOB (shortness of breath) - ICD9: 786.05, ICD10: R06.02 - Stable 6. Urinary urgency - ICD9: 788.63, ICD10: R39.15 - Check lab - PSA/PROSTSPECAG DIAG with next labs 6 mo f/u with labs I agree with the Chief Complaint, ROS, and Past Histories independently gathered by the clinical support specialist and the remaining scribed note accurately describes my personal service to the patient. Medical Decision Making: Problems: Moderate: 2+ stable chronic illnesses Data: Unique test(s) ordered: 3+ Risk: Moderate: Drug management Medical Decision Making Level: 4 - Moderate Miriam D Thorbrock, MD The documentation for this note was completed by Selina Conde Ma acting as scribe for Miriam Aguayo MD. August 10, 2021 9:24 AM. Selina Conde Ma documented in this encounter [facility] 06-29-2021 Miscellaneous Notes Received outside records from [facility], made copy for Dr. Boateng and sent original to scanning. documented in this encounter [facility] 09-23-2020 Nurse Note DCI REVIEWED WITH PT AND HIS FRIEND LILLIANA, VERBALIZES UNDERSTANDING. RXS E-PRESCRIBED. Patient Instructions for [facility]: Prior to arrival: Please be sure to wear loose, comfortable clothing and non-skid shoes Bring your health insurance information and a photo ID, as well as your Living Will or Durable Power of Relationship Executive for Healthcare if it is available to you. Bring your cane/walker any applicable assistive device. If you currently use a CPAP, please bring this device with you on the day of surgery. Bring a list of your medications with the name of the medication, dose and how often you are taking it. Be sure to include herbal preparations and [id number] medications on this list. Do not have any solid food 8 hours prior to surgery/procedure. This includes food, gum, mints or hard candy. Carefully follow any instructions you were given by your Surgeon regarding further food restrictions. Do not drink any alcoholic beverages, smoke or chew tobacco during the 24 hours prior to your surgery/procedure. Drink plenty of fluids the day prior to your procedure to maintain hydration. You may drink clear liquids up to 2 hours prior to surgery time (unless otherwise instructed by your surgeon). This includes water, Gatorade and black coffee (no dairy or creamer products). On the morning of your surgery/procedure, you may brush your teeth but avoid swallowing water except for a sip with any recommended medications to be taken the morning of surgery. Bathe or shower the night before or early on the day of your surgery/procedure. Avoid the use of lotions, perfumes or powders. All nail portuguese is to be removed from fingernails and toenails. INSTRUCTED ON HIBICLENS Please be sure to remove all jewelry and body piercings and leave all valuables at home. You will receive a phone call between 3:30 and 7:30 pm the business day before your procedure to verify the time you should arrive at the hospital. Eyeglasses, hearing aids or dentures may be worn to the hospital. Bring your storage container for these items as you will be asked to remove them prior to your surgery/procedure. Please do not wear any contact lenses the day of your surgery/procedure. Parking at [facility] is free. Please park in the lot in front of the main lobby. Enter the Main Entrance where a Biodiesel Processing Technician Liaison at the information desk will greet you and accompany you to the surgery waiting area. Children under the age of 16 are NOT permitted in the Pre/Post Operative areas. They are welcome to wait with a responsible adult in the surgery waiting area. After your surgery: If you are having an outpatient procedure and will be going home the same day, a responsible licensed adult must be available for transportation, and is expected to remain at the hospital for the duration of your surgery/procedure. You are NOT allowed to drive yourself home. documented in this encounter [facility] Events Date Time Event Comment 09/23/2020 0811 AN Equip Check 0902 0938 An Start 0938 Patient Verification 0938 An Start Data 0942 An Induction 0945 An Intubation 0945 Anesthesia Ready 1118 Emergence [facility] OR 07 1130 An Extubation 1130 an stop data 1133 Handoff 1134 An Stop Meds * Agents No agents on file. * Blood No blood administrations on file. Lines, Drains, and Airways Type Details Placement Removal Peripheral IV Placement Date: 06/14; Placement Time: 816; Orientation: Left; Location: Hand; Site Prep: Chlorhexidine ; Local Anes: None; Patient Tolerance: Tolerated well 09/23/20 0817 by Kady Pinedo RN Wound 09/23/20; 1020; Surg ical Wou; Shoulder; Right; ADHESIVE 22CM SKIN DERMABOND PRINEO, DRESSING 3.5 X 6IN AQUACEL AG HYDROFIBER 09/23/20 1020 by Marcela Coronel RN ETT Placement Date: 06/14; Placement Time: 0955 (created via procedure documentation); Mask Ventilation: Ventilated by mask; Type: Cuffed, Oral; Tube Size: 8 mm; Grade View: 1; Insertion Attempts: 1; Removal Date: 09/23/20; Removal Time: 1130 09/23/20 0955 by Noemi Castle CRNA 09/23/20 1130 by Noemi Castle CRNA documented in this encounter [id number] Surgical operation note* Anesthesia Postprocedure Evaluation - Gael Foster MD - 09/23/2020 11:36 AM EDT Anesthesia Post Evaluation * * Refer to nursing documentation for PACU vitals * * Patient participation: patient participated - receiving long-acting regional anesthesia: full recovery has not occurred and is not expected within the 48-hour timeframe. Mental status: sleepy but conscious Pain management: adequate Anesthetic complications: no Nausea / vomiting: no Cardiovascular status: hemodynamically stable Respiratory / airway status: airway patent and nasal cannula Postoperative hydration: acceptable Comment: Patient has satisfactorily recovered from his anesthetic. * Anesthesia Procedure Notes - Noemi Castle CRNA - 09/23/2020 9:55 AM EDT Associated Order(s): ETT Airway ETT Airway Mask ventilation: ventilated by mask Technique: direct laryngoscopy and intubating stylet Type: cuffed oral Tube size: 8 mm Final laryngoscope: Mac 3 Location: oral Final grade: 1 Insertion attempts: 1 Placement verification: auscultation, symmetrical chest wall movement and end tidal CO2 Secured at: 22 cm (measured from the teeth) Secured by: tape Bite block: none Lip/tooth/tongue trauma: no *See MAR for medication administration * Anesthesia Procedure Notes - Raheem Franco MD - 09/23/2020 9:02 AM EDT Associated Order(s): Nerve Block Nerve Block Patient location: pre-op Start time: 09/23/2020 8:45 AM End time: 09/23/2020 8:48 AM Reason for block: post-op pain management per surgeon request Staff Anesthesiologist: Raheem Franco MD Performed by: Anesthesiologist Preanesthetic Checklist Completed: patient identified, pre-op evaluation, risks and benefits discussed, informed consent obtained, monitors and equipment checked, IV checked, site marked and timeout performed Procedure Block type: interscalene Injection technique: single-shot Laterality: right Monitoring: quality assurance monitor body, pulse oximetry, heart rate and BP Patient sedated with meaningful contact: yes (see MAR for details) Patient position: supine Preparation: mask, sterile gloves, cap and hand hygiene Prep: ChloraPrep Local infiltration: lidocaine 1% Needle: SonoPlex 21 G x 100 mm Needle localization: ultrasound guidance (ultrasound will be scanned into the patient's chart) Injection assessment: incremental injection and local visualized surrounding nerve on ultrasound Number of attempts: 1 Events: blood not aspirated, injection not painful, no injection resistance and paresthesia did notoccur with needle placement Patient tolerance: patient tolerated the procedure well with no immediate complications *See MAR for medication administration * Anesthesia Preprocedure Evaluation - Neeraj Ramirez MD - 09/23/2020 8:01 AM EDT ANESTHESIA PREPROCEDURE EVALUATION Anesthesia Plan ASA: 3 Type: general and regional Airway: endotracheal tube Induction: intravenous Anesthetic plan and risks as outlined in the consent discussed with: patient Use of blood products discussed with: patient Plan discussed with: Anesthesiologist and MACHINERY DISMANTLER Physical Exam Airway Mallampati: II TM Distance: >3 FB Neck ROM: full Mouth opening: >[address]: no Cardiovascular Rhythm: regular Pulmonary - normal Neurological Mental Status: alert Dental Dental exam is normal and age appropriate Review of Systems / Medical History - Reviewed: ECG, patient summary, anesthesia history, nursing notes, medical history, H&P and labs / results - No history of anesthetic complications Pulmonary Positive: shortness of breath sleep apnea Negative: COPD, asthma Neurological / Psychological Negative: seizures, neuromuscular disease, TIA, CVA Cardiovascular Ejection fraction: 62 Comment: No inducible ischemia on stress test 11/2019 Positive: hypertension hyperlipidemia Negative: pacemaker, AICD, valvular problems, [place], CAD, CABG/stent, dysrhythmias, angina, angina, CHF Gastrointestinal / Hepatic / Renal NPO Status > 8 hours Positive: GERD, well controlled, renal disease and CRI Negative: dysphagia, liver disease Endocrine / Musculoskeletal Positive: obesity, anemia Negative: diabetes, hypothyroidism, hyperthyroidism documented in this [id number] Miscellaneous Notes* Op Note - Srinivasa Rosado MD - 09/23/2020 10:05 AM EDT OPERATIVE REPORT Bev Norris Jr. Preoperative Diagnosis: Right shoulder irreparable rotator cuff tear Postoperative Diagnosis: Same Procedure: 1) Right reverse total shoulder arthroplasty 2) Right proximal humerus hardware removal Surgeon:Srinivasa Rosado Anesthesia: General OR Staff: Fish Cake Maker: Marcela Coronel RN Scrub Person: Veronica Meza RN; Opal Liao RN Scrub Person Assist: Miriam Pearl RN ROAD MIXER OPERATOR: Hattie Burr RN Implants: Implant Name Type Inv. Item Serial No. Chemical Processing Technician Lot No. [id number] No. Used Action BASEPLATE 25MM STD PERFORM REVERSED AEQUALIS - [id number] BASEPLATE 25MM STD PERFORM REVERSED AEQUALIS [id number] TORNIER Right 1 Implanted SPHERE 39MM GLENOID STD RVRS AEQUALIS PERFORMA - [id number] SPHERE 39MM GLENOID STD RVRS AEQUALIS PERFORMA [id number] TORNIER Right 1 Implanted SCREW 6.5 X 45MM CENTRAL THRD PERFORM REVERSED AEQUALIS - [id number] SCREW 6.5 X 45MM CENTRAL THRD PERFORM REVERSED AEQUALIS TORNIER Right 1 Implanted SCREW 5 X 38MM PERIPHERAL THRD PERFORM REVERSED AEQUALIS - [id number] SCREW 5 X 38MM PERIPHERAL THRD PERFORM REVERSED AEQUALIS TORNIER Right 1 Implanted SCREW 5 X 26MM PERIPHERAL THRD PERFORM REVERSED AEQUALIS - [id number] SCREW 5 X 26MM PERIPHERAL THRD PERFORM REVERSED AEQUALIS TORNIER Right 1 Implanted SCREW 5 X 26MM PERIPHERAL THRD PERFORM REVERSED AEQUALIS - [id number] SCREW 5 X 26MM PERIPHERAL THRD PERFORM REVERSED AEQUALIS TORNIER Right 1 Explanted SCREW 5 X 18MM PERIPHERAL THRD PERFORM REVERSED AEQUALIS - [id number] SCREW 5 X 18MM PERIPHERAL THRD PERFORM REVERSED AEQUALIS TORNIER Right 1 Implanted SCREW 5 X 22MM PERIPHERAL THRD PERFORM REVERSED AEQUALIS - [id number] SCREW 5 X 22MM PERIPHERAL THRD PERFORM REVERSED AEQUALIS TORNIER Right 2 Implanted STEM 74MM 3B 132.5DEG HUM STD PTC ASCEND FLEX - [id number] STEM 74MM 3B 132.5DEG HUM STD PTC ASCEND FLEX [id number] TORNIER Right 1 Implanted TRAY +0MM HUM HIGH REVERSED ASCEND FLEX - [id number] TRAY +0MM HUM HIGH REVERSED ASCEND FLEX [id number] TORNIER Right 1 Implanted INSERT +6 X 39MM 12.5DEG HUM FLEX - [id number] INSERT +6 X 39MM 12.5DEG HUM FLEX [id number] TORNIER Right 1 Implanted EBL: 100 mL Complications: None Disposition: To PACU, stable Indications: Bev Norris Jr. is a 74 y.o. male presented shoulder pain and dysfunction. The patient's history, exam, and imaging findings consistent with massive, irreparable rotator cuff tear that were not responsive to nonoperative treatment. He had undergone prior attempt at rotator cuff repair that failed. The patient now presents for reverse total shoulder replacement. The procedure is indicated to improve pain and shoulder function.The patient is awake and alert. After thorough discussion of the risks, benefits, expected outcomes, and alternatives to surgical intervention, the patient agreed to proceed with surgical treatment. The patient voiced understanding and written as well as verbal consent was obtained by myself prior to the procedure. Procedure Note: The patient was brought back to the OR and placed supine on the OR table. After successful induction of anesthesia by anesthesia staff, the patient was positioned in the beach chair position and all bony prominences were padded appropriately. The surgical field was then provisionally cleansed and then prepped and draped in the usual sterile fashion. The patient remained stable during this positioning. At this time a time-out was performed, with the correct patient, site, and procedure identified. The universal time out as well as sign your site protocols were followed. Preoperative antibiotics were administered. A standard deltopectoral approach was utilized. The cephalic vein was identified and retracted laterally. Attention to hemostasis was paid using electrocautery. Self-retaining retractors were placed.The anterior humeral circumflex vessels were ligated. The rotator interval was then opened and the subscapularis was peeled off the lesser tuberosity. The arm was then externally rotated. The humeralhead was cut with appropriate retroversion. There were 4 anchors in the proximal humerus from priorrotator cuff repair. The anchors and sutures were removed with rongeur. The humerus was sequentially broached until appropriate height and good cortical shatter was encountered. The corresponding humeral stem trial was then placed along with the humeral head cut protector. I then turned my attention to the glenoid. Anterior and posterior glenoid retractors were placed exposing the glenoid. The labrum was then excised. The guidewire was placed into the glenoid at appropriate starting point. The glenoid was then reamed to bleeding subchondral bone. The appropriately sized baseplate was then attached to the glenoid with screws of the appropriate length. I then placed the glenosphere on the glenoid and affixed this securely. The appropriate sized polyethylene trial was then placed on the trial humeral stem. The shoulder was then reduced with the trial in place. The shoulder was found to be stable without impingement. There was good tension on the conjoined tendon and deltoid with no shuck. I then removed the trial and irrigated the humerus. The final humeral implant and polyethylene liner matching the trials were then inserted with appropriate retroversion. The shoulder was reduced. The shoulder was then taken through range of motion and again found to be stable without impingement. The incision was then irrigated using copious sterile saline and 1g of Vancomycin powder was sprinkled in the wound. The wound was then closed in layered fashion. The shoulder was sterilely cleansed and dressed. The patient was then subsequently transferred to to PACU in a stable condition. All sponge and needle counts were correct at the end of the case. Postoperative Plan: The patient will be kept NWB on the ipsilateral extremity with a sling. The patient will follow the reverse total shoulder replacement postoperative protocol. Srinivasa Rosado documented in this [id number] History and physical note* Srinivasa Rosado MD - 09/23/2020 9:21 AM EDT INTERVAL HISTORY AND PHYSICAL Patient Name: Bev Norris Jr. Admit Date: [id number] MR #: [id number] : 1945 The H&P has been reviewed and the patient has been examined. I concur with the findings of the H&P. There are no significant changes. It is appropriate to proceed with the planned procedure. Srinivasa Rosado MD 09/23/2020 9:21 AM documented in this [id number] Hospital Discharge instructions * Instructions* Marisa Jones CNP - 09/22/2020 Postoperative Instructions - Shoulder Arthroplasty ANESTHESIA If you received a nerve block during surgery, you may have numbness or inability to move the limb. Do not be alarmed as this may last up to 36 hours depending upon the amount and type of medication used by the anesthesiologist. Make sure If you are experiencing numbness after 36 hours, please call the office. When the nerve block begins to wear off, you will feel a tingling sensation, like pins and needles.It is important that you start taking the pain medication at that time to ensure that you stay ahead of the pain. It is important to take the pain medicine when the pain level is a 4 or 5/10, before it gets too high. MEDICATIONS Opioid pain medicine (Percocet or [place]): You will receive a prescription for pain medication to beused after surgery only. Most patients will require a short duration of opioid pain medications (less than one to two weeks). Please take these medications as directed. The goal of postoperative painmanagement is pain control, NOT pain elimination. You should expect some pain after surgery - this pain helps you protect itself while it is healing. o Refill Policy: For concerns over your safety due to the rising opioid addiction epidemic in the [place], refills of your pain medications will only be provided on a case by case basis. Pleaseuse these medications judiciously. o Common side effects of the opioid pain medications include nausea, drowsiness, constipation, and itching. Take these medications with food to decrease side effects. To prevent and treat constipation, take an xcnk-upj-szydoih stool softener (like colace 100 mg twice per daily) or laxative (like dulcolax or Miralax as needed). If you experience itching, over the counter Benadryl may be helpful. o Do not drive a vehicle or operate heavy machinery while taking opioid pain medication. Anti-nausea medicine (Zofran): Sometimes patients experience nausea related to either anesthesia orthe narcotic pain medication. If this is the case you will find this medication helpful. Anti-inflammatory (NSAID) medicine (Naproxen or Ibuprofen): These are both anti- inflammatory and pain relief. Do NOT take this medication if you have had an ulcer in the past unless you have cleared this with your primary care doctor. You should take NSAIDs with food or antacid to reduce the chanceof upset stomach. NSAIDs may be taken in between the opioid pain medication to help smooth out the postoperative peaks and valleys , reduce overall amount of pain medication required, and increase the time intervals between narcotic pain medication use. DVT prophylaxis (Aspirin, Xarelto, Lovenox, or Coumadin): For most patients, activity alone is sufficient to prevent dangerous blood clots, but in some cases your personal risk profile and/or the type of surgery you have undergone makes it necessary that you take medication to help prevent blood clots. This is typically taken for 4 weeks aftersurgery Stool softener (Colace and/or Senna): are available over the counter at your local pharmacy and should be taken while you are taking opioid pain medication to avoid constipation. You should stop taking these medications if you develop diarrhea. Over the counter laxatives (dulcolax or Miralax) may be used if you develop painful constipation Please resume all home medications, unless instructed otherwise DIET Begin with clear liquids and light food (such as jello, soup, etc) Progress to normal diet as tolerated if not nauseated Avoid greasy or spicy foods for the first 24 hours to avoid GI upset. Increase fluid intake to helpprevent constipation. WOUND CARE It is normal for the shoulder to bleed and swell following surgery. If blood soaks onto or through the dressing, this is not significant cause for concern. This is common for the first 24-48 hours after surgery. Do not remove the bandage. Keep your incision clean and dry until your first postoperative visit. The bandage is waterproof. You may shower after 3 days, but it is very important that you keep the wound dry. The bandage is waterproof and needs to remain in place. As your balance may be affected by recent surgery, we recommend placing a plastic chair in the shower to help prevent falls. You may remove your sling to shower, unless otherwise instructed. The arm should kept at the side at all times except for under arm hygiene. In order to clean under your surgical arm, you may lean forward at the waist and allow your surgical extremity fall forward. Do not immerse or soak the incision in water until 4 weeks after surgery. Do not apply neosporin, bacitracin, or any ointment to the incisions, dressings, or band-aids. ACTIVITY When sleeping or resting, inclined positions (i.e. reclining chair or in bed with pillows behind you) and a pillow under the forearm for support may provide better comfort. Keep the arm elevated to the level of your chest to reduce swelling Do not engage in activities which increase pain/swelling such as lifting and carrying for the first14 days following surgery. If pain is tolerable, you may return to sedentary work 3-7 days after surgery. You may begin gentle passive range of motion exercise for the elbow, wrist, and hand 3 times per day. Formal physical therapy (PT) will begin about 2-6 weeks after your surgery. ICE THERAPY It is very important to keep ice on your shoulder during the initial postoperative period (first 2 weeks). This should begin immediately after surgery. Use the ice machine continuously or ice packs (if no machine used) for 20-30 minutes every 2 hours daily until your sutures are removed. Care should be taken to avoid frostbite while icing by making sure the ice is not directly touching the skin. SLING Your sling with supporting abduction pillow should be worn at all times (except for hygiene and exercises). Maintain your elbow position against the pillow and even with your side or in front of this position to minimize stress on the repair. Only remove your sling or brace for physical therapy, home exercise and bathing. FOLLOW-UP CARE Typically, postoperative appointments are made 10-14 days after the date of surgery. Contact the office to confirm or schedule your postoperative visits. NORMAL SENSATIONS AND FINDINGS AFTER SURGERY PAIN: We do everything possible to make your pain/discomfort level tolerable, but some amount of pain is to be expected. WARMTH: Mild warmth around the operative site is normal for up to 3 weeks. REDNESS: Small amount of redness where the sutures enter the skin is normal. If redness worsens or spreads it is important that you contact the office. DRAINAGE: A small amount is normal for the first 48-72 hours. If wounds continue to drain after this time (requiring multiple gauze changes per day), please contact the office. NUMBNESS: Around the incision is common. BRUISING: Is common and often tracks down the arm or leg due to gravity and results in an alarming appearance, but is common and will resolve with time. FEVER: Low-grade fevers (less than 101.5 F) are common during the first week after surgery. You should drink plenty of fluids and breathe deeply. EMERGENCIES If you have an emergency that requires immediate attention, call [phone] or go to your local emergency room. SLEEP DISORDER RISK, HOME CARE INSTRUCTIONS - During your admission to the hospital, we identified you at risk of having a sleep disorder. Because of these initial findings, we recommend that you learn more about sleep disorders, talk to your primary care doctor and have further testing, such as a sleep study. Undiagnosed and untreated sleepapnea is very dangerous, especially after surgery and when you are taking any kind of sedation medication, including the prescribed medication given to you after surgery. -Obstructive sleep apnea (ALBERTO) is the most common type of sleep disorder. With ALBERTO, a person has short periods where they stop breathing while sleeping. This condition can be treated. If left untreated it can lead to heart attack, stroke, and even sudden -The most common test to diagnose a sleep disorder is a sleep study. During a sleep study, you go to a sleep center in the evening and you are monitored while you sleep. -The most common treatment for ALBERTO is using equipment that keeps your airway open while you sleep. If you need treatment, the doctor will explain this to you and you will be instructed on how to use the equipment. With treatment, most people feel better and have more energy within a few days. Treatment also helps prevent other medical conditions. - Until you are able to be evaluated to determine if you have sleep apnea you should sleep with your head of bed elevated (not just with pillows, but actual head of bed must be elevated), avoid sedating medications and alcohol at bedtime, take the least amount of the prescribed medication for the least amount of time possible. -Follow-up - We recommend you have further testing. -Make an appointment with your primary care doctor to discuss getting tested for a sleep disorder. Your doctor can answer any other questions and help get further testing, if needed. [facility] Diagnosis Essential hypertension- Primary Unspecified essential hypertension Primary insomnia Persistent disorder of initiating or maintaining sleep Pure hypercholesterolemia Herniation of left lung SOB (shortness of breath) Shortness of breath Urinary urgency Urgency of urination Benign prostatic hyperplasia with lower urinary tract symptoms, symptom details unspecified [facility] Essential hypertension- Primary Unspecified essential hypertension SOB (shortness of breath) Shortness of breath Pure hypercholesterolemia Stage 3a chronic kidney disease (HCC) Primary insomnia Persistent disorder of initiating or maintaining sleep Benign prostatic hyperplasia with lower urinary tract symptoms, symptom details unspecified Erectile dysfunction, unspecified erectile dysfunction type Herniation of left lung Need for vaccination Need for prophylactic vaccination and inoculation against unspecified single disease [facility] Diagnosis Essential hypertension- Primary Unspecified essential hypertension Erectile dysfunction, unspecified erectile dysfunction type [facility] Diagnosis Essential hypertension- Primary Unspecified essential hypertension Stage 3a chronic kidney disease (HCC) Benign prostatic hyperplasia with lower urinary tract symptoms, symptom details unspecified Pure hypercholesterolemia Primary insomnia Persistent disorder of initiating or maintaining sleep Herniation of left lung SOB (shortness of breath) Shortness of breath Erectile dysfunction, unspecified erectile dysfunction type [facility] Diagnosis Essential hypertension- Primary Unspecified essential hypertension Erectile dysfunction, unspecified erectile dysfunction type Primary insomnia Persistent disorder of initiating or maintaining sleep Pure hypercholesterolemia Benign prostatic hyperplasia with lower urinary tract symptoms, symptom details unspecified [facility] Diagnosis Primary insomnia Persistent disorder of initiating or maintaining sleep documented in this encounter [facility]* Diagnosis Essential hypertension- Primary Unspecified essential hypertension Pure hypercholesterolemia Primary insomnia Persistent disorder of initiating or maintaining sleep Stage 3a chronic kidney disease (HCC) Benign prostatic hyperplasia with lower urinary tract symptoms, symptom details unspecified Urinary urgency Urgency of urination Erectile dysfunction, unspecified erectile dysfunction type Arthralgia of right hand Pain in joint, hand Arthralgia, unspecified joint documented in this encounter [facility] Advance Directives No Advanced Directives Records FoundDocuments on File Type Date Recorded Patient Network Project Manager Expl anation Advance Directives and Livin g Will 11/22/2014 12:05 PM 11-20-14 Power of Relationship Executive 01/16/2015 10:07 AM 12/24 Living Will 01/16/2015 10:07 AM 5 Latest Code Status on File Code Status Date Activated Date Inactivated Comments Full Code 01/15/2015 6:16 PM 01/16/2015 1:50 PM Full Code - Unverified 11/17/2014 1:54 PM 11/20/2014 11: 04 AM Full Code 09/21/2014 8:04 PM 09/30/2014 2:01 PM Documents on File Type Date Recorded Patient Network Project Manager Expl anation Power of Relationship Executive 01/16/2015 10:07 AM 12/24 Living Will 01/16/2015 10:07 AM 5 Advance Directives and Livin g Will 11/22/2014 12:05 PM 11-20-14 Latest Code Status on File Code Status Date Activated Date Inactivated Comments Full Code 01/15/2015 6:16 PM 01/16/2015 1:50 PM Full Code - Unverified 11/17/2014 1:54 PM 11/20/2014 11: 04 AM Full Code 09/21/2014 8:04 PM 09/30/2014 2:01 PM Summary Purpose Family History No Family History Records FoundNo Family History Records FoundNo Family History Records FoundNo Family History Records FoundNo Family History Records Found History of Present Illness * Cassius Segundo MD - 01/06/2020 3:51 PM EDT Assessment and Plan: Subjective I saw Bev Castro in the office today. I originally saw him 9 years ago when he presented with evidence of a left chest wall herniation after coughing with a lung hernia. He was completely asymptomatic at the time and had no pain. He has recently developed some shortness of breath. Follow-up CT scan was done which shows that it is perhaps somewhat bigger than it was 5 years ago. He has some PFTs which I have only a short result sheet of which suggested some restriction and a positive responseto bronchodilators. This followed an episode of coughing 10 years ago. He is really not had anything in the way of pain but more increased shortness of breath over the past couple years. This has been associated with a weight gain and a decrease in exercise tolerance. He has some occasional wheezing by his history. On exam I do not detect any wheezing at this time. He has normal rate and rhythm and no JVD or pedal edema. His chest wall has a fairly wide defect at the bottom of his left pleural space with a significant wide separation of what appears to be perhaps the eighth and ninth ribs. With extensive palpation he has no pain and aside from some exertional shortness of breath no symptomsotherwise. I have some concerns that fixing this will not resolve his shortness of breath and that this is a fairly big operation at this point which would require mesh patching with a relatively uncertain result and again I am not convinced this will help his shortness of breath. I will obtain a full set of PFTs near his home and I think would be a good idea for him to see a chief power dispatcher to seeif we can achieve any relief in his shortness of breath with good inhaler therapy as his PFTs did suggest a good response to bronchodilator therapy. While this could certainly be fixed I think this is a fairly significant undertaking in him that may not provide much in the way of relief from his shortness of breath but we will await results of the PFTs and pulmonary consultation. I discussed thisat some length with him and I think he understands all this and is agreeable to this plan. Thank you for allowing me to participate in his care and please let me know if I can be of any help in the meantime. Patient presents with a new problem to this office and additional work up as above is planned. I have personally reviewed laboratory test results, independently reviewed radiology films and my findings are as above, and I will communicate plan with the patient's referring physician. Physical Examination: Vital Signs: BP 122/74 (BP Location: Left arm, Patient Position: Sitting, BP Cuff Size: Adult) Pulse 64 Patient's Medications New Prescriptions No medications on file Previous Medications AMLODIPINE (NORVASC) 5 MG TABLET 10 mg daily . ASPIRIN 81 MG EC TABLET Take 81 mg by mouth 2 (two) times a day . DOCOSAHEXANOIC ACID/EPA (FISH OIL ORAL) Take by mouth 2 (two) times a day. FENOFIBRATE 160 MG TABLET Take 160 mg by mouth every morning. DOS GLUCOSAMINE/CHONDROITIN A/MSM (CONDROLITE ORAL) Take by mouth daily. IBUPROFEN (ADVIL,MOTRIN) 600 MG TABLET Take 600 mg by mouth 2 (two) times a day. Patient states lately He has been taking 600mg-800mg up to 5 times a day. LISINOPRIL-HYDROCHLOROTHIAZIDE (PRINZIDE,ZESTORETIC) 10-12.5 MG PER TABLET Take 1 tablet by mouth daily . METOPROLOL TARTRATE (LOPRESSOR) 100 MG TABLET Take 100 mg by mouth 2 (two) times a day. DOS MULTIVIT-MIN/FA/LYCOPENE/LUT (CENTRUM SILVER ULTRA MEN'S ORAL) Take 1 tablet by mouth daily. PSYLLIUM (METAMUCIL) 3.4 GRAM PACKET Take 1 packet by mouth 2 (two) times a day. Mix with orange juice. ROSUVASTATIN (CRESTOR) 10 MG TABLET TRAZODONE (DESYREL) 100 MG TABLET Take 100 mg by mouth nightly. Modified Medications No medications on file Discontinued Medications No medications on file Review of Systems Constitution: Negative. Negative for decreased appetite, diaphoresis, fever and malaise/fatigue. Eyes: Negative. Cardiovascular: Negative. Respiratory: Negative. Skin: Negative. Musculoskeletal: Negative. Gastrointestinal: Negative. Neurological: Negative. Psychiatric/Behavioral: Negative. All other systems reviewed and are negative. Family History Problem Relation Age of Onset Heart failure Father Diabetes Father Kidney disease Father Cancer Mother lung, endometrial Anesthesia problems Neg Hx Social History Socioeconomic History Marital status: Spouse name: Not on file Number of children: Not on file Years of education: Not on file Highest education level: Not on file Occupational History Not on file Social Needs Financial resource strain: Not on file Food insecurity Worry: Not on file Inability: Not on file Transportation needs Medical: Not on file Non-medical: Not on file Tobacco Use Smoking status: Never Smoker Smokeless tobacco: Never Used Substance and Sexual Activity Alcohol use: Yes Alcohol/week: 1.0 standard drinks Types: 1 Cans of beer per week Frequency: Monthly or less Drinks per session: 1 or 2 Binge frequency: Never Comment: 1 a month Drug use: No Sexual activity: Not on file Lifestyle Physical activity Days per week: Not on file Minutes per session: Not on file Stress: Not on file Relationships Social connections Talks on phone: Not on file Gets together: Not on file Attends religion service: Not on file Active member of club or organization: Not on file Attends meetings of clubs or organizations: Not on file Relationship status: Not on file Other Topics Concern Not on file Social History Narrative Not on file Past Medical History: Diagnosis Date Arrhythmia Arthritis Cataract Diverticulitis with perforation s/p colectomy GERD (gastroesophageal reflux disease) Hernia of abdominal wall Hyperlipidemia Hypertension Lung abnormality lung herniation inbetween ribs Sleep apnea Sleep apnea, obstructive Past Surgical History: Procedure Laterality Date ACLm repair left knee 06/04/2002 biopsy right shoulder 1970 CHOLECYSTECTOMY LAPAROSCOPIC N/A 11/19/2014 Procedure: CHOLECYSTECTOMY LAPAROSCOPIC lysis of adhesions with cholangiogram; Surgeon: Yunior Yañez MD; Location: [facility] Main OR; Service: COLON SURGERY Left 03/13/2014 Left hemicolectomy for diverticulitis COLONOSCOPY 2003,2010 COLONOSCOPY N/A 11/18/2014 Procedure: COLONOSCOPY; Surgeon: Manjit Low MD; Location: [facility] Endo; Service: CV IR INTERVENTIONAL RADIOLOGY N/A 09/23/2014 Procedure: VR CV IR US Guided LUQ Abd Mass BX; Surgeon: Gael Garcia MD; Location: [facility] IR LAB;Service: Explantation of VHR mesh 04/25/2014 HERNIA REPAIR TRANS ABDOMINAL OPEN N/A 01/15/2015 Procedure: OPEN INCISIONAL HERNIA REPAIR; Surgeon: Yunior Yañez MD; Location: [facility] Main OR; Service: I&D of LUQ abscess 04/25/2014 with wound-vac left knee prosthesis 09/11/2013 left wrist carpal tunnel 08/06/2012 repair right meniscus right knee 11/11/1997 right knee prosthesis 11/24/2006 right little toe surgery 09/15/1989 SINUS SURGERY 11/05/2013 tympanoplasty right ear 05/06/1985 VASECTOMY 1977 VENTRAL HERNIA REPAIR 10/04/2004 umbilical Physical Exam Constitutional: He is oriented to person, place, and time. He appears well- developed and well-nourished. HENT: Head: Normocephalic and atraumatic. Eyes: Pupils are equal, round, and reactive to light. Neck: Normal range of motion. Neck supple. Cardiovascular: Normal rate, regular rhythm and intact distal pulses. Pulmonary/Chest: Effort normal and breath sounds normal. Significant thoracic chest wall herniation of lung laterally probably about between eighth and ninth ribs. It is nontender and easily reduces with every breath. Abdominal: Soft. Bowel sounds are normal. Neurological: He is alert and oriented to person, place, and time. Skin: Skin is warm and dry. Psychiatric: He has a normal mood and affect. His behavior is normal. Cassius Segundo MD 01/06/20 * Irma Tay RN - 01/06/2020 2:08 PM EDT [facility] Subjective Bev Norris Jr. is a 74 y.o. male seen in the office today for Pre-op Exam (Herniated Lt Lung) HPI: HPI Histories: Past Medical History: Diagnosis Date Arrhythmia Arthritis Cataract Diverticulitis with perforation s/p colectomy GERD (gastroesophageal reflux disease) Hernia of abdominal wall Hyperlipidemia Hypertension Lung abnormality lung herniation inbetween ribs Sleep apnea Sleep apnea, obstructive Past Surgical History: Procedure Laterality Date ACLm repair left knee 06/04/2002 biopsy right shoulder 1970 CHOLECYSTECTOMY LAPAROSCOPIC N/A 11/19/2014 Procedure: CHOLECYSTECTOMY LAPAROSCOPIC lysis of adhesions with cholangiogram; Surgeon: Yunior Yañez MD; Location: [facility] Main OR; Service: COLON SURGERY Left 03/13/2014 Left hemicolectomy for diverticulitis COLONOSCOPY 2003,2010 COLONOSCOPY N/A 11/18/2014 Procedure: COLONOSCOPY; Surgeon: Manjit Low MD; Location: [facility] Endo; Service: CV IR INTERVENTIONAL RADIOLOGY N/A 09/23/2014 Procedure: VR CV IR US Guided LUQ Abd Mass BX; Surgeon: Gael Garcia MD; Location: [facility] IR LAB;Service: Explantation of VHR mesh 04/25/2014 HERNIA REPAIR TRANS ABDOMINAL OPEN N/A 01/15/2015 Procedure: OPEN INCISIONAL HERNIA REPAIR; Surgeon: Yunior Yañez MD; Location: [facility] Main OR; Service: I&D of LUQ abscess 04/25/2014 with wound-vac left knee prosthesis 09/11/2013 left wrist carpal tunnel 08/06/2012 repair right meniscus right knee 11/11/1997 right knee prosthesis 11/24/2006 right little toe surgery 09/15/1989 SINUS SURGERY 11/05/2013 tympanoplasty right ear 05/06/1985 VASECTOMY 1977 VENTRAL HERNIA REPAIR 10/04/2004 umbilical Family History Problem Relation Age of Onset Heart failure Father Diabetes Father Kidney disease Father Cancer Mother lung, endometrial Anesthesia problems Neg Hx Social History Tobacco Use Smoking status: Never Smoker Smokeless tobacco: Never Used Substance Use Topics Alcohol use: Yes Alcohol/week: 1.0 standard drinks Types: 1 Cans of beer per week Frequency: Monthly or less Drinks per session: 1 or 2 Binge frequency: Never Comment: 1 a month Drug use: No Current Outpatient Medications on File Prior to Visit Medication Sig amLODIPine (NORVASC) 5 MG tablet 10 mg daily . aspirin 81 MG EC tablet Take 81 mg by mouth 2 (two) times a day . DOCOSAHEXANOIC ACID/EPA (FISH OIL ORAL) Take by mouth 2 (two) times a day. fenofibrate 160 MG tablet Take 160 mg by mouth every morning. DOS GLUCOSAMINE/CHONDROITIN A/MSM (CONDROLITE ORAL) Take by mouth daily. lisinopriL-hydrochlorothiazide (PRINZIDE,ZESTORETIC) 10-12.5 mg per tablet Take 1 tablet by mouth daily . metoprolol tartrate (LOPRESSOR) 100 MG tablet Take 100 mg by mouth 2 (two) times a day. DOS MULTIVIT-MIN/FA/LYCOPENE/LUT (CENTRUM SILVER ULTRA MEN'S ORAL) Take 1 tablet by mouth daily. psyllium (METAMUCIL) 3.4 gram packet Take 1 packet by mouth 2 (two) times a day. Mix with orange juice. rosuvastatin (CRESTOR) 10 MG tablet traZODone (DESYREL) 100 MG tablet Take 100 mg by mouth nightly. ibuprofen (ADVIL,MOTRIN) 600 MG tablet Take 600 mg by mouth 2 (two) times a day. Patient states lately He has been taking 600mg-800mg up to 5 times a day. No current facility-administered medications on file prior to visit. No Known Allergies Review of Systems Constitution: Negative. HENT: Negative. Eyes: Negative. Cardiovascular: Negative. Respiratory: Positive for shortness of breath. Endocrine: Negative. Hematologic/Lymphatic: Negative. Skin: Negative. Musculoskeletal: Positive for muscle cramps. Gastrointestinal: Positive for heartburn. Genitourinary: Positive for frequency. Neurological: Negative. Psychiatric/Behavioral: Negative. Allergic/Immunologic: Negative. Objective Physical Exam Vitals: Vitals: 01/06/20 1330 BP: 122/74 BP Location: Left arm Patient Position: Sitting BP Cuff Size: Adult Pulse: 64 Assessment & Plan: 1. Coronary artery calcification - Ambulatory referral to Cardiothoracic Surgery 2. Herniation of left lung - Ambulatory referral to Cardiothoracic Surgery Other Tests Ordered: No orders of the defined types were placed in this encounter. Follow-Up Ordered: No follow-ups on file. Irma Tay RN documented in this encounter Assessments Diagnosis Coronary artery calcification Herniation of left lung Additional Source Comments (unrecognized sect ion and content) No Status Records FoundNo Status Records FoundNo Status Records FoundNo Status Records FoundNo Status Records Found INFORMATION SOURCE (unrecogn ized section and content) DATE CREATED AUTHOR AUTHOR'S ORGANIZ ATION 05/21/2020 [facility] DATE CREATED AUTHOR AUTHOR'S ORGANIZ ATION 07/25/2020 [facility] ([place]) DATE CREATED AUTHOR AUTHOR'S ORGANIZ ATION 11/18/2020 [facility] DATE CREATED AUTHOR AUTHOR'S ORGANIZ ATION 06/13/2023 [facility] Reason for Visit (unrecogniz ed section and content) Status Reason Specialty Diagnoses / Procedures Referred By Contact Referred To Contact Pending Review Cardiothoracic Surgery Diagnoses Coronary artery calcification Herniation of left lung Rodo Lino MD [address] [place] [address] Cassius Segundo MD [address] [facility] [address] [place] [address] Status Reason Specialty Diagnoses / Procedures Referre d By Contact Referred To Contact Diagnoses M19.011 Procedures DC RECONSTR TOTAL SHOULDER IMPLANT RIGHT REVERSE TOTAL SHOULDER ARTHROPLASTY Reason Comments Received Outside Medical Records Reason Comments F/U 6 Month Reason Comments FYI-No Action Needed disc of records at [facility] Reason Comments Lab Orders Reason Comments F/U 3 Month Reason Comments Insurance Authorization [employer] Scheduled Active and Recently Administ ered Medications (unrecognized section and content) Continuous Medication Order 09/21/2020 09/22/2020 09/23/2020 lactated Ringers infusion 50 mL/hr, Intravenous, Continuous, Starting on Mon09/23/20 at 0845, Pre-Procedure 0845 (Due)1246 (Stop ped - Provider: Yuliay Mirza RN) PRN Medication Order 09/21/2020 09/22/2020 09/23/2020 fentaNYL (SUBLIMAZE) injection 25 mcg 25 mcg, Intravenous, Every 5 min PRN, Pain, Starting on Mon09/23/20 at 1119, For 4 doses, PACU (only), [] Do not give more than 100 mcg while in PACU. hydrALAZINE (APRESOLINE) injection 5 mg 5 mg, Intravenous, Every 15 min PRN, SBP greater than 160 or DBP greater than 90, Starting on Mon09/23/20 at 1119, For 4 doses, PACU (only), [] Do not give more than 20 mg total. [] Hold for HR greater than 100. [] Administer if labetalol or metoprolol ineffective at maximum dose or not ordered. HYDROmorphone (DILAUDID) injection 0.25 mg 0.25 mg, Intravenous, Every 5 min PRN, Pain, Starting on Mon09/23/20 at 1119, For 6 doses, PACU (only), [] Give if fentanyl not effective or not ordered. [] Do not give more than 1.5 mg total. labetaloL (NORMODYNE) injection 5 mg 5 mg, Intravenous, Every 5 min PRN, SBP greater than 160 or DBP greater than 90, Starting on Mon09/23/20 at 1119, For 4 doses, PACU (only), [] Do not give more than 20 mg total. [] Hold for HR less than 50. naloxone (NARCAN) injection 0.1 mg(Linked Group 1) 0.1 mg, Intravenous, As needed, opioid reversal, Starting on Mon09/23/20 at 0752, Pre-Procedure, Mix nalOXone (NARCAN) 0.4 mg (1ml) with 9 mL of Normal Saline to total 10 mL. Administer 0.1 mg (2.5ml) IV Push every 2 minutes until respiratory rate is 10 or greater. naloxone (NARCAN) injection 0.1 mg(Linked Group 2) 0.1 mg, Intravenous, As needed, opioid reversal, Starting on Mon09/23/20 at 1119, PACU (only), [] Mix nalOXone (NARCAN) 0.4 mg (1ml) with 9 mL of Normal Saline to total 10 mL. [] Administer 0.1 mg (2.5ml) IV Push every 2 minutes until respiratory rate is 10 or greater. naloxone (NARCAN) injection 0.4 mg(Linked Group 1) 0.4 mg, Intravenous, As needed, opioid reversal, patient is pulseless, breathless, and unresponsive, Starting on Mon09/23/20 at 0752, Pre-Procedure, Call a code first, then administer naloxone dose undiluted IV Push over 30 seconds. naloxone (NARCAN) injection 0.4 mg(Linked Group 2) 0.4 mg, Intravenous, As needed, opioid reversal, patient is pulseless, breathless, and unresponsive, Starting on Mon09/23/20 at 1119, PACU (only), Call a code first, then administer naloxone dose undiluted IV Push over 30 seconds. ondansetron (ZOFRAN) injection 4 mg 4 mg, Intravenous, Every 15 min PRN, nausea, vomiting, Starting on Mon09/23/20 at 1119, For 2 doses, PACU (only), Do not give more than 2 doses. Administer first as needed for nausea/vomiting, or as directed by anesthesia oxyCODONE (ROXICODONE) 10 mg/0.5 mL concentrated solution 5 mg 5 mg, Sublingual, Once as needed, moderate to severe pain, Pain, Starting on Mon09/23/20 at 1119, For 1 dose, PACU (only), Use first if unable to tolerate oral route. sodium chloride (NS) 0.9 % irrigation solution (CANCELED) As needed, Starting on Mon09/23/20 at 1018, Intra-Procedure 1018 (Given - Provid er: Srinivasa Rosado MD)1020 (Given - Provider: Srinivasa Rosado MD) sterile water irrigation solution (CANCELED) As needed, Starting on Mon09/23/20 at 1019, Intra-Procedure 1019 (Given - Provid er: Srinivasa Rosado MD) vancomycin (VANCOCIN) injection (CANCELED) As needed, Starting on Mon09/23/20 at 1118, Intra-Procedure 1118 (Given - Provid er: Srinivasa Rosado MD) Linked Groups Order Group 1: Notify Anesthesiologist (CANCELED) STAT, Until discontinued, Starting on Mon09/23/20 at 0753, Until Specified
Notify anesthesiologist immediately if respiratory rate less than or equal to 8 breaths per minute., Pre-Procedure And naloxone (NARCAN) injection 0.1 mgJump to med 0.1 mg, Intravenous, As needed, opioid reversal, Starting on Mon09/23/20 at 0752, Pre-Procedure
Mix nalOXone (NARCAN) 0.4 mg (1ml) with 9 mL of Normal Saline to total 10 mL. Administer 0.1 mg (2.5ml) IV Push every 2 minutes until respiratory rate is 10 or greater.
And naloxone (NARCAN) injection 0.4 mgJump to med 0.4 mg, Intravenous, As needed, opioid reversal, patient is pulseless, breathless, and unresponsive, Starting on Mon09/23/20 at 0752, Pre-Procedure
Call a code first, then administer naloxone dose undiluted IV Push over 30 seconds.
Group 2: Notify Anesthesiologist (CANCELED) STAT, Until discontinued, Starting on Mon09/23/20 at 1120, Until Specified
Notify anesthesiologist immediately if respiratory rate less than or equal to 8 breaths per minute., PACU (only) And naloxone (NARCAN) injection 0.1 mgJump to med 0.1 mg, Intravenous, As needed, opioid reversal, Starting on Mon09/23/20 at 1119, PACU (only)
[] Mix nalOXone (NARCAN) 0.4 mg (1ml) with 9 mL of Normal Saline to total 10 mL. [] Administer 0.1 mg (2.5ml) IV Push every 2 minutes until respiratory rate is 10 or greater.
And naloxone (NARCAN) injection 0.4 mgJump to med 0.4 mg, Intravenous, As needed, opioid reversal, patient is pulseless, breathless, and unresponsive, Starting on Mon09/23/20 at 1119, PACU (only)
Call a code first, then administer naloxone dose undiluted IV Push over 30 seconds.
Source Comments (unrecognize d section and content) In the event this informatio n is protected by the Federal Confidentiality of Alcohol and Drug Abuse Patient Records regulations: The Federal rules restrict any use of the information to criminally investigate or prosecute any alcohol or drug abuse patient.[facility] the event this information is protected by the Federal Confidentiality of Alcohol and Drug Abuse Patient Records regulations: The Federal rules restrict any use of the information to criminally investigate or prosecute any alcohol or drug abuse patient.[facility] ShawIn the event this information is protected by the Federal Confidentiality of Alcohol and Drug Abuse Patient Records regulations: The Federal rules restrict any use of the information to criminally investigate or prosecute any alcohol or drug abuse patient.[facility] ShawIn the event this information is protected by the Federal Confidentiality of Alcohol and Drug Abuse Patient Records regulations: The Federal rules restrict any use of the information to criminally investigate or prosecute any alcohol or drug abuse patient.[facility] ShawIn the event this information is protected by the Federal Confidentiality of Alcohol and Drug Abuse Patient Records regulations: The Federal rules restrict any use of the information to criminally investigate or prosecute any alcohol or drug abuse patient.[facility] ShawIn the event this information is protected by the Federal Confidentiality of Alcohol and Drug Abuse Patient Records regulations: The Federal rules restrict any use of the information to criminally investigate or prosecute any alcohol or drug abuse patient.[facility] ShawIn the event this information is protected by the Federal Confidentiality of Alcohol and Drug Abuse Patient Records regulations: The Federal rules restrict any use of the information to criminally investigate or prosecute any alcohol or drug abuse patient.[facility] ShawIn the event this information is protected by the Federal Confidentiality of Alcohol and Drug Abuse Patient Records regulations: The Federal rules restrict any use of the information to criminally investigate or prosecute any alcohol or drug abuse patient.[facility] ShawIn the event this information is protected by the Federal Confidentiality of Alcohol and Drug Abuse Patient Records regulations: The Federal rules restrict any use of the information to criminally investigate or prosecute any alcohol or drug abuse patient.[facility] Care Teams (unrecognized sec tion and content) Recreational Therapist Relationship Specialty Start Date End Date Miriam Aguayo MD [address] [place], [place] [id number] PCP - General Family Practice 02/26/20 Recreational Therapist Relationship Specialty Start Date End Date Miriam Aguayo MD [address] [place] [address] PCP - General Family Practice 02/26/20 Recreational Therapist Relationship Specialty Start Date End Date Miriam Aguayo MD [address] [place] [address] PCP - General Family Medicine 02/26/20 Recreational Therapist Relationship Specialty Start Date End Date Miriam Aguayo MD [address] [place] [address] PCP - General Family Medicine 02/26/20 Recreational Therapist Relationship Specialty Start Date End Date Miriam Aguayo MD [address] [place], [place] [id number] PCP - General Family Medicine 02/26/20 Recreational Therapist Relationship Specialty Start Date End Date Miriam Aguayo MD [address] [place] [address] PCP - General Family Medicine 02/26/20 Recreational Therapist Relationship Specialty Start Date End Date Miriam Aguayo MD [address] [place], [place] [id number] PCP - General Family Medicine 02/26/20 Recreational Therapist Relationship Specialty Start Date End Date Miriam Aguayo MD [address], [place] [id number] PCP - General Family Medicine 02/26/20 FOR RECORDS PERTAINING TO PATIENTS WHO ARE OR HAVE BEEN ENROLLED IN A CHEMICAL DEPENDENCY/SUBSTANCEABUSE PROGRAM, SOME INFORMATION MAY BE OMITTED. This clinical summary was aggregated from multiple sources. Caution should be exercised in using it in the provision of clinical care. This summary normalizes information from multiple sources, and as a consequence, information in this document may materially change the coding, format and clinical context of patient data. In addition, data may be omitted in some cases. CLINICAL DECISIONS SHOULD BE BASED ON THE PRIMARY CLINICAL RECORDS. [facility]. provides no warranty or guarantee of the accuracy or completeness of information in this document.
[2023-07-06 12:09] LABS: CCP IgG Antibodies 21 units (0-19); QNTFERON TB Mitogen Value > 10.00 IU/mL (.); QNTFERON TB Nil Value 0.01 IU/mL (.); QNTFERON TB1+ Ag Value 0 IU/mL (.); QNTFERON TB2+ Ag Value 0.02 IU/mL (.); QNTIFERON TB Positive Criteria Negative (Negative)
== END | disposition home or self-care (01) ==
LOC: MTLAB 15:41
PROVIDERS: PCP Family Medicine; Referring Provider Internal Medicine Rheumatology; Visit Provider Internal Medicine Rheumatology
DX: M06.4 Inflammatory polyarthropathy (principal); E78.5 Hyperlipidemia, unspecified; N18.9 Chronic kidney disease, unspecified
CPT/HCPCS: 36415; 72170; 80053; 85025; 85652; 86140; 86200; 86431; 86480; 86706; 86803; 87340

== ENCOUNTER → 2023-08-15 | Outpatient (CLI) | payer MEDICARE, SELFPAY ==
[2023-08-15 16:18] LABS: Absolute Lymphocyte Count 1.57 X10^3/uL (0.83-4.51); Absolute Neutrophil Count 6.9 X10^3/uL (2.0-7.7); Eosinophil# 0.23 X10^3/uL; Eosinophils% 2.2 % (0-5); Hematocrit 42.2 % (40-54); Hemoglobin 13.5 g/dL (13.0-16.5); Lymphocyte # 1.57 X10^3/ul (0.83-4.51); Lymphocyte % 15.3 % (19-41); Mean Corpuscular Volume 87.4 fL (80-94); Mean Platelet Vol. 11.9 fl (6.2-12.0); Monocyte# 0.99 X10^3/uL; Monocyte% 9.6 % (0-10); NRBC Flagged by Analyzer 0 % (0-5); Neutrophil # 6.86 X10^3/uL (2.7-7.7); Neutrophil % 66.9 % (47-70); POSITIVE COUNT YES; POSITIVE MORPHOLOGY YES; Platelet Count 203 K/mm3 (150-450); RBC Distribution Width CV 15.3 % (11.6-14.6); RBC Distribution Width SD 47.8 fl (35.1-43.9); Red Blood Count 4.83 M/mm3 (4.6-6.2); White Blood Count 10.3 K/mm3 (4.4-11.0)
[2023-08-15 16:38] LABS: ALB/GLOB Ratio 0.7 RATIO (0.9-2.4); AST(SGOT) 17 U/L (15-37); Alanine Aminotransfer ALT/SGPT 23 U/L (16-61); Albumin, Serum 3.3 g/dL (3.2-5.0); Alkaline Phosphatase 54 U/L (45-117); Anion Gap 6 (5-15); BUN 47 mg/dL (7-18); BUN/Creat Ratio 21.6 RATIO (10-20); Calcium,Total 9.3 mg/dL (8.5-10.1); Chloride 103 mmol/L (98-107); Creatinine, Serum 2.18 mg/dL (0.70-1.30); EST Glomerular Filtration Rate 31 mL/min (>60); Est Glom Filt Rate - Afr Amer 38 mL/min (>60); Globulin 4.5 g/dL (2.2-4.2); Glucose 100 mg/dL (74-106); Potassium 4.3 mmol/L (3.5-5.1); Protein, Total 7.8 g/dL (6.4-8.2); Sodium Level 137 mmol/L (136-145)
== END | disposition home or self-care (01) ==
LOC: MTLAB 13:24
PROVIDERS: PCP Family Medicine; Referring Provider Internal Medicine Rheumatology; Visit Provider Internal Medicine Rheumatology
DX: M06.09 Rheumatoid arthritis without rheumatoid factor, multiple sites (principal); Z79.899 Other long term (current) drug therapy; M19.041 Primary osteoarthritis, right hand; M19.042 Primary osteoarthritis, left hand; M17.0 Bilateral primary osteoarthritis of knee
CPT/HCPCS: 36415; 80053; 85025

== ENCOUNTER → 2023-10-17 | Outpatient (CLI) | payer MEDICARE, SELFPAY ==
[2023-10-17 10:05] LABS: Absolute Lymphocyte Count 1.66 X10^3/uL (0.83-4.51); Absolute Neutrophil Count 4.8 X10^3/uL (2.0-7.7); Basophil# 0.13 X10^3/uL; Basophil% 1.6 % (0-1); Eosinophil# 0.17 X10^3/uL; Eosinophils% 2.1 % (0-5); Hematocrit 43.2 % (40-54); Hemoglobin 14.4 g/dL (13.0-16.5); Lymphocyte # 1.66 X10^3/ul (0.83-4.51); Lymphocyte % 20.9 % (19-41); Mean Corp Hgb Conc 33.3 g/dL (32-36); Mean Corpuscular Hgb 29.3 pg (27.0-32.0); Mean Corpuscular Volume 87.8 fL (80-94); Monocyte% 10.1 % (0-10); NRBC Flagged by Analyzer 0 % (0-5); Neutrophil # 4.81 X10^3/uL (2.7-7.7); Neutrophil % 60.4 % (47-70); Platelet Count 163 K/mm3 (150-450); RBC Distribution Width CV 15.4 % (11.6-14.6); RBC Distribution Width SD 48.7 fl (35.1-43.9); Red Blood Count 4.92 M/mm3 (4.6-6.2)
[2023-10-17 10:23] LABS: ALB/GLOB Ratio 0.8 RATIO (0.9-2.4); AST(SGOT) 18 U/L (15-37); Alanine Aminotransfer ALT/SGPT 23 U/L (16-61); Albumin, Serum 3.3 g/dL (3.2-5.0); Alkaline Phosphatase 48 U/L (45-117); Anion Gap 8 (5-15); BUN 48 mg/dL (7-18); BUN/Creat Ratio 26.2 RATIO (10-20); Calcium,Total 9.6 mg/dL (8.5-10.1); Chloride 104 mmol/L (98-107); Creatinine, Serum 1.83 mg/dL (0.70-1.30); EST Glomerular Filtration Rate 39 mL/min (>60); Est Glom Filt Rate - Afr Amer 47 mL/min (>60); Glucose 98 mg/dL (74-106); Potassium 3.8 mmol/L (3.5-5.1); Protein, Total 7.3 g/dL (6.4-8.2); Sodium Level 138 mmol/L (136-145)
== END | disposition home or self-care (01) ==
PROVIDERS: PCP Family Medicine; Referring Provider Internal Medicine Rheumatology; Visit Provider Internal Medicine Rheumatology
DX: M06.09 Rheumatoid arthritis without rheumatoid factor, multiple sites (principal); Z79.899 Other long term (current) drug therapy
CPT/HCPCS: 36415; 80053; 85025

== ENCOUNTER → 2023-11-27 | Outpatient (CLI) | payer MEDICARE, SELFPAY ==
[2023-11-27 18:05] LABS: ALB/GLOB Ratio 0.7 RATIO (0.9-2.4); AST(SGOT) 15 U/L (15-37); Alanine Aminotransfer ALT/SGPT 19 U/L (16-61); Alkaline Phosphatase 50 U/L (45-117); Anion Gap 6 (5-15); BUN 30 mg/dL (7-18); BUN/Creat Ratio 16.6 RATIO (10-20); Calcium,Total 8.9 mg/dL (8.5-10.1); Chloride 106 mmol/L (98-107); Creatinine, Serum 1.81 mg/dL (0.70-1.30); EST Glomerular Filtration Rate 39 mL/min (>60); Est Glom Filt Rate - Afr Amer 47 mL/min (>60); Globulin 4.1 g/dL (2.2-4.2); Glucose 111 mg/dL (74-106); Protein, Total 7.1 g/dL (6.4-8.2); Sodium Level 138 mmol/L (136-145)
== END | disposition home or self-care (01) ==
LOC: MTLAB 15:27
PROVIDERS: PCP Family Medicine; Referring Provider Internal Medicine Rheumatology; Visit Provider Internal Medicine Rheumatology
DX: M06.09 Rheumatoid arthritis without rheumatoid factor, multiple sites (principal); Z79.899 Other long term (current) drug therapy; M19.041 Primary osteoarthritis, right hand; M19.042 Primary osteoarthritis, left hand; M17.0 Bilateral primary osteoarthritis of knee
CPT/HCPCS: 36415; 80053

== ENCOUNTER → 2024-01-15 | Outpatient (CLI) | payer MEDICARE, SELFPAY ==
[2024-01-15 10:18] LABS: Absolute Neutrophil Count 4.8 X10^3/uL (2.0-7.7); Basophil# 0.11 X10^3/uL; Basophil% 1.4 % (0-1); Eosinophils% 3.9 % (0-5); Hematocrit 37.1 % (40-54); Hemoglobin 11.9 g/dL (13.0-16.5); Lymphocyte % 16.8 % (19-41); Mean Corp Hgb Conc 32.1 g/dL (32-36); Mean Corpuscular Hgb 28.4 pg (27.0-32.0); Mean Corpuscular Volume 88.5 fL (80-94); Monocyte# 0.89 X10^3/uL; Monocyte% 11.5 % (0-10); NRBC Flagged by Analyzer 0 % (0-5); Neutrophil # 4.81 X10^3/uL (2.7-7.7); Platelet Count 181 K/mm3 (150-450); RBC Distribution Width CV 14.5 % (11.6-14.6); Red Blood Count 4.19 M/mm3 (4.6-6.2); White Blood Count 7.8 K/mm3 (4.4-11.0)
[2024-01-15 10:55] LABS: ALB/GLOB Ratio 0.8 RATIO (0.9-2.4); AST(SGOT) 18 U/L (15-37); Alanine Aminotransfer ALT/SGPT 24 U/L (16-61); Albumin, Serum 3.3 g/dL (3.2-5.0); Alkaline Phosphatase 51 U/L (45-117); Anion Gap 7 (5-15); BUN 32 mg/dL (7-18); BUN/Creat Ratio 17.3 RATIO (10-20); Calcium,Total 9.8 mg/dL (8.5-10.1); Chloride 105 mmol/L (98-107); Creatinine, Serum 1.85 mg/dL (0.70-1.30); EST Glomerular Filtration Rate 38 mL/min (>60); Est Glom Filt Rate - Afr Amer 46 mL/min (>60); Glucose 112 mg/dL (74-106); Potassium 3.9 mmol/L (3.5-5.1); Protein, Total 7.3 g/dL (6.4-8.2); Sodium Level 136 mmol/L (136-145)
== END | disposition home or self-care (01) ==
PROVIDERS: PCP Family Medicine; Referring Provider Internal Medicine Rheumatology; Visit Provider Internal Medicine Rheumatology
DX: M06.09 Rheumatoid arthritis without rheumatoid factor, multiple sites (principal); M19.041 Primary osteoarthritis, right hand; M19.042 Primary osteoarthritis, left hand; M17.0 Bilateral primary osteoarthritis of knee; Z79.899 Other long term (current) drug therapy; Z96.653 Presence of artificial knee joint, bilateral
CPT/HCPCS: 36415; 80053; 85025

== ENCOUNTER → 2024-03-19 | Outpatient (CLI) | payer MEDICARE, SELFPAY ==
[2024-03-19 15:30] LABS: Absolute Lymphocyte Count 0.94 X10^3/uL (0.83-4.51); Absolute Neutrophil Count 8.3 X10^3/uL (2.0-7.7); Basophil% 0.9 % (0-1); Eosinophil# 0.11 X10^3/uL; Hematocrit 38.5 % (40-54); Hemoglobin 12.2 g/dL (13.0-16.5); Lymphocyte # 0.94 X10^3/ul (0.83-4.51); Lymphocyte % 8.9 % (19-41); Mean Corp Hgb Conc 31.7 g/dL (32-36); Mean Corpuscular Hgb 27.5 pg (27.0-32.0); Mean Corpuscular Volume 86.9 fL (80-94); Mean Platelet Vol. 12.8 fl (6.2-12.0); Monocyte# 0.67 X10^3/uL; Monocyte% 6.3 % (0-10); NRBC Flagged by Analyzer 0 % (0-5); Neutrophil # 8.33 X10^3/uL (2.7-7.7); Neutrophil % 78.7 % (47-70); Platelet Count 225 K/mm3 (150-450); RBC Distribution Width SD 50.8 fl (35.1-43.9); Red Blood Count 4.43 M/mm3 (4.6-6.2); White Blood Count 10.6 K/mm3 (4.4-11.0)
[2024-03-19 16:00] LABS: ALB/GLOB Ratio 0.7 RATIO (0.9-2.4); AST(SGOT) 15 U/L (15-37); Alanine Aminotransfer ALT/SGPT 25 U/L (16-61); Albumin, Serum 3.3 g/dL (3.2-5.0); Alkaline Phosphatase 51 U/L (45-117); Anion Gap 5 (5-15); BUN 46 mg/dL (7-18); BUN/Creat Ratio 21.8 RATIO (10-20); Calcium,Total 9.5 mg/dL (8.5-10.1); Chloride 105 mmol/L (98-107); Creatinine, Serum 2.11 mg/dL (0.70-1.30); EST Glomerular Filtration Rate 33 mL/min (>60); Est Glom Filt Rate - Afr Amer 39 mL/min (>60); Globulin 4.8 g/dL (2.2-4.2); Glucose 117 mg/dL (74-106); Potassium 4.5 mmol/L (3.5-5.1); Protein, Total 8.1 g/dL (6.4-8.2); Sodium Level 135 mmol/L (136-145)
== END | disposition home or self-care (01) ==
LOC: MTLAB 12:53
PROVIDERS: PCP Family Medicine; Referring Provider Internal Medicine Rheumatology; Visit Provider Internal Medicine Rheumatology
DX: M06.09 Rheumatoid arthritis without rheumatoid factor, multiple sites (principal); M19.041 Primary osteoarthritis, right hand; M19.042 Primary osteoarthritis, left hand; M17.0 Bilateral primary osteoarthritis of knee; Z79.899 Other long term (current) drug therapy
CPT/HCPCS: 36415; 80053; 85025

== ENCOUNTER → 2024-05-16 | Outpatient (CLI) | payer MEDICARE, SELFPAY ==
[2024-05-16 15:06] LABS: Absolute Lymphocyte Count 0.81 X10^3/uL (0.83-4.51); Absolute Neutrophil Count 7.4 X10^3/uL (2.0-7.7); Basophil# 0.09 X10^3/uL; Eosinophil# 0.06 X10^3/uL; Eosinophils% 0.7 % (0-5); Hematocrit 38.7 % (40-54); Hemoglobin 12.4 g/dL (13.0-16.5); Lymphocyte # 0.81 X10^3/ul (0.83-4.51); Lymphocyte % 8.9 % (19-41); Mean Corpuscular Hgb 28.6 pg (27.0-32.0); Mean Corpuscular Volume 89.4 fL (80-94); Mean Platelet Vol. 12.8 fl (6.2-12.0); Monocyte% 5.5 % (0-10); NRBC Flagged by Analyzer 0 % (0-5); Neutrophil % 81.5 % (47-70); Platelet Count 163 K/mm3 (150-450); RBC Distribution Width CV 15.4 % (11.6-14.6); RBC Distribution Width SD 49.7 fl (35.1-43.9); Red Blood Count 4.33 M/mm3 (4.6-6.2); White Blood Count 9.1 K/mm3 (4.4-11.0)
[2024-05-16 16:20] LABS: ALB/GLOB Ratio 0.9 RATIO (0.9-2.4); AST(SGOT) 15 U/L (15-37); Alanine Aminotransfer ALT/SGPT 22 U/L (16-61); Albumin, Serum 3.6 g/dL (3.2-5.0); Alkaline Phosphatase 45 U/L (45-117); Anion Gap 6 (5-15); BUN 42 mg/dL (7-18); BUN/Creat Ratio 19.7 RATIO (10-20); Calcium,Total 9.8 mg/dL (8.5-10.1); Chloride 103 mmol/L (98-107); Creatinine, Serum 2.13 mg/dL (0.70-1.30); EST Glomerular Filtration Rate 32 mL/min (>60); Est Glom Filt Rate - Afr Amer 39 mL/min (>60); Globulin 4.1 g/dL (2.2-4.2); Glucose 119 mg/dL (74-106); Protein, Total 7.7 g/dL (6.4-8.2); Sodium Level 134 mmol/L (136-145)
== END | disposition home or self-care (01) ==
LOC: MTLAB 12:48
PROVIDERS: PCP Family Medicine; Referring Provider Internal Medicine Rheumatology; Visit Provider Internal Medicine Rheumatology
DX: M06.00 Rheumatoid arthritis without rheumatoid factor, unspecified site (principal); M19.041 Primary osteoarthritis, right hand; M19.042 Primary osteoarthritis, left hand; M17.0 Bilateral primary osteoarthritis of knee; Z79.899 Other long term (current) drug therapy
CPT/HCPCS: 36415; 80053; 85025

== ENCOUNTER → 2024-08-19 | Outpatient (CLI) | payer MEDICARE, SELFPAY ==
[2024-08-19 15:50] LABS: Absolute Lymphocyte Count 1.51 X10^3/uL (0.83-4.51); Absolute Neutrophil Count 5.4 X10^3/uL (2.0-7.7); Basophil% 1.2 % (0-1); Eosinophil# 0.19 X10^3/uL; Eosinophils% 2.2 % (0-5); Hematocrit 41.3 % (40-54); Lymphocyte # 1.51 X10^3/ul (0.83-4.51); Lymphocyte % 17.4 % (19-41); Mean Corp Hgb Conc 33.9 g/dL (32-36); Mean Corpuscular Hgb 30.4 pg (27.0-32.0); Mean Corpuscular Volume 89.8 fL (80-94); Mean Platelet Vol. 13.1 fl (6.2-12.0); Monocyte# 1.12 X10^3/uL; Monocyte% 12.9 % (0-10); NRBC Flagged by Analyzer 0 % (0-5); Neutrophil # 5.43 X10^3/uL (2.7-7.7); Neutrophil % 62.6 % (47-70); Platelet Count 162 K/mm3 (150-450); RBC Distribution Width CV 13.5 % (11.6-14.6); RBC Distribution Width SD 44.3 fl (35.1-43.9); White Blood Count 8.7 K/mm3 (4.4-11.0)
[2024-08-19 16:14] LABS: ALB/GLOB Ratio 1.2 RATIO (0.9-2.4); AST(SGOT) 22 U/L (<=37); Alanine Aminotransfer ALT/SGPT 19 U/L (<=46); Alkaline Phosphatase 48 U/L (40-129); Anion Gap 13 (5-15); BUN 41 mg/dL (4-19); BUN/Creat Ratio 19.8 RATIO (10-20); Calcium,Total 9.9 mg/dL (7.6-11.0); Carbon Dioxide 23.6 mmol/L (21.0-32.0); Chloride 100 mmol/L (98-108); Creatinine, Serum 2.08 mg/dL (0.70-1.20); EST Glomerular Filtration Rate 32 (>60); Globulin 3.4 g/dL (2.2-4.2); Glucose 93 mg/dL (70-99); Potassium 4.5 mmol/L (3.3-5.1); Protein, Total 7.4 g/dL (5.9-8.4); Sodium Level 137 mmol/L (133-145); Total Bilirubin 0.43 mg/dL (0.00-1.30)
== END | disposition home or self-care (01) ==
LOC: MTLAB 12:38
PROVIDERS: PCP Family Medicine; Referring Provider Internal Medicine Rheumatology; Visit Provider Internal Medicine Rheumatology
DX: M06.00 Rheumatoid arthritis without rheumatoid factor, unspecified site (principal); Z79.899 Other long term (current) drug therapy
CPT/HCPCS: 36415; 80053; 85025

== ENCOUNTER → 2024-10-15 | Outpatient (CLI) | payer MEDICARE, SELFPAY ==
[2024-10-15 15:59] LABS: Absolute Lymphocyte Count 1.24 X10^3/uL (0.83-4.51); Absolute Neutrophil Count 8.1 X10^3/uL (2.0-7.7); Basophil# 0.11 X10^3/uL; Eosinophil# 0.14 X10^3/uL; Eosinophils% 1.3 % (0-5); Hematocrit 37.9 % (40-54); Hemoglobin 12.6 g/dL (13.0-16.5); Lymphocyte # 1.24 X10^3/ul (0.83-4.51); Lymphocyte % 11.6 % (19-41); Mean Corp Hgb Conc 33.2 g/dL (32-36); Mean Corpuscular Hgb 29.9 pg (27.0-32.0); Mean Platelet Vol. 13.6 fl (6.2-12.0); Monocyte% 6.5 % (0-10); NRBC Flagged by Analyzer 0 % (0-5); Neutrophil # 8.09 X10^3/uL (2.7-7.7); Neutrophil % 75.5 % (47-70); Platelet Count 175 K/mm3 (150-450); RBC Distribution Width CV 14.2 % (11.6-14.6); RBC Distribution Width SD 45.3 fl (35.1-43.9); Red Blood Count 4.21 M/mm3 (4.6-6.2); White Blood Count 10.7 K/mm3 (4.4-11.0)
[2024-10-15 16:03] LABS: ALB/GLOB Ratio 1.2 RATIO (0.9-2.4); AST(SGOT) 21 U/L (<=37); Alanine Aminotransfer ALT/SGPT 17 U/L (<=46); Alkaline Phosphatase 51 U/L (40-129); Anion Gap 14 (5-15); BUN 41 mg/dL (4-19); BUN/Creat Ratio 19.7 RATIO (10-20); Calcium,Total 9.5 mg/dL (7.6-11.0); Carbon Dioxide 20.4 mmol/L (21.0-32.0); Chloride 104 mmol/L (98-108); Creatinine, Serum 2.08 mg/dL (0.70-1.20); EST Glomerular Filtration Rate 32 (>60); Globulin 3.5 g/dL (2.2-4.2); Glucose 129 mg/dL (70-99); Protein, Total 7.5 g/dL (5.9-8.4); Sodium Level 138 mmol/L (133-145); Total Bilirubin 0.38 mg/dL (0.00-1.30)
== END | disposition home or self-care (01) ==
LOC: MTLAB 12:33
PROVIDERS: PCP Family Medicine; Referring Provider Internal Medicine Rheumatology; Visit Provider Internal Medicine Rheumatology
DX: M06.00 Rheumatoid arthritis without rheumatoid factor, unspecified site (principal); M19.041 Primary osteoarthritis, right hand; M19.042 Primary osteoarthritis, left hand; M17.0 Bilateral primary osteoarthritis of knee; Z79.899 Other long term (current) drug therapy
CPT/HCPCS: 36415; 80053; 85025

== ENCOUNTER → 2024-12-10 | Outpatient (CLI) | payer MEDICARE, SELFPAY ==
[2024-12-10 12:34] LABS: Hematocrit 34.9 % (40-54); Hemoglobin 11.6 g/dL (13.0-16.5); Immature Granulocytes Count 0.250 X10^3/uL (0.0-0.0); Mean Corp Hgb Conc 33.2 g/dL (32-36); Mean Corpuscular Volume 90.4 fL (80-94); Mean Platelet Vol. 12.4 fl (6.2-12.0); NRBC Flagged by Analyzer 0 % (0-5); Platelet Count 155 K/mm3 (150-450); RBC Distribution Width CV 14.0 % (11.6-14.6); RBC Distribution Width SD 45.6 fl (35.1-43.9); Red Blood Count 3.86 M/mm3 (4.6-6.2); White Blood Count 8.9 K/mm3 (4.4-11.0)
[2024-12-10 12:49] LABS: AST(SGOT) 20 U/L (<=37); Alanine Aminotransfer ALT/SGPT 13 U/L (<=46); Albumin, Serum 3.7 g/dL (3.4-4.8); Alkaline Phosphatase 48 U/L (40-129); Anion Gap 15 (5-15); BUN 47 mg/dL (4-19); BUN/Creat Ratio 19.3 RATIO (10-20); Calcium,Total 9.5 mg/dL (7.6-11.0); Carbon Dioxide 21.4 mmol/L (21.0-32.0); Chloride 102 mmol/L (98-108); Globulin 3.3 g/dL (2.2-4.2); Glucose 131 mg/dL (70-99); Potassium 4.2 mmol/L (3.3-5.1); Uric Acid 11.1 mg/dL (3.5-7.2)
[2024-12-12 05:07] LABS: Red Blood Cell Count Test/G6PD 3.93 x10E6/uL (4.14-5.80)
== END | disposition home or self-care (01) ==
LOC: MTLAB 10:22
PROVIDERS: PCP Family Medicine; Referring Provider Internal Medicine Rheumatology; Visit Provider Internal Medicine Rheumatology
DX: M06.00 Rheumatoid arthritis without rheumatoid factor, unspecified site (principal); M19.041 Primary osteoarthritis, right hand; M19.042 Primary osteoarthritis, left hand; M17.0 Bilateral primary osteoarthritis of knee; Z79.899 Other long term (current) drug therapy
CPT/HCPCS: 36415; 80053; 82955; 84550; 85025

== ENCOUNTER → 2025-03-12 | Outpatient (CLI) | payer MEDICARE, SELFPAY ==
[2025-03-12 10:23] LABS: Hematocrit 36.4 % (40-54); Hemoglobin 11.8 g/dL (13.0-16.5); Immature Granulocytes Count 0.210 X10^3/uL (0.0-0.0); Mean Corp Hgb Conc 32.4 g/dL (32-36); Mean Corpuscular Volume 92.2 fL (80-94); Mean Platelet Vol. 12.3 fl (6.2-12.0); NRBC Flagged by Analyzer 0 % (0-5); Platelet Count 178 K/mm3 (150-450); RBC Distribution Width CV 13.7 % (11.6-14.6); RBC Distribution Width SD 46.2 fl (35.1-43.9); Red Blood Count 3.95 M/mm3 (4.6-6.2); White Blood Count 8.5 K/mm3 (4.4-11.0)
[2025-03-12 10:54] LABS: AST(SGOT) 19 U/L (<=37); Alanine Aminotransfer ALT/SGPT 13 U/L (<=46); Albumin, Serum 4.0 g/dL (3.4-4.8); Alkaline Phosphatase 47 U/L (40-129); Anion Gap 14 (5-15); BUN 46 mg/dL (4-19); BUN/Creat Ratio 20.9 RATIO (10-20); Calcium,Total 9.4 mg/dL (7.6-11.0); Carbon Dioxide 23.6 mmol/L (21.0-32.0); Chloride 101 mmol/L (98-108); Globulin 3.5 g/dL (2.2-4.2); Glucose 107 mg/dL (70-99); Potassium 4.0 mmol/L (3.3-5.1)
== END | disposition home or self-care (01) ==
LOC: MTLAB 08:59
PROVIDERS: PCP Family Medicine; Referring Provider Internal Medicine Rheumatology; Visit Provider Internal Medicine Rheumatology
DX: M06.00 Rheumatoid arthritis without rheumatoid factor, unspecified site (principal); Z79.899 Other long term (current) drug therapy
CPT/HCPCS: 36415; 80053; 85025